=== PATIENT | female | born 1945 | race Two or more races ===

== ENCOUNTER 2025-02-01 21:31 | Emergency (ER) | payer MEDICARE, SELFPAY ==
[2025-02-01 21:59] VITALS: BP 152/86; PULSE 100; RESP 18; TEMP 37.3; O2SAT 98
--- NOTE | 2025-02-01 22:00 | EKG_ITS ---
[facility] Test Date: 2025-02-01 Pat Name: MATT MERRILL Department: Room: - Gender: Female [employer] Operator: : 1945 Requested By: Arturo Mccauley Order Number: [id number] Reading MD: Arturo Mccauley Measurements Intervals [place] Rate: 96 P: 45 DC: 145 QRS: -26 QRSD: 74 T: 16 QT: 330 QTc: 418 Interpretive Statements SINUS RHYTHM WITH OCCASIONAL SUPRAVENTRICULAR PREMATURE COMPLEXES LOW QRS VOLTAGE IN PRECORDIAL LEADS [QRS DEFLECTION < 1.0 mV IN CHEST LEADS] MINIMAL VOLTAGE CRITERIA FOR LVH, CONSIDER NORMAL VARIANT [MEETS CRITERIA IN ONE OF: R(aVL), S(V1), R(V5), R(V5/V6)+S(V1)] ANTERIOR MYOCARDIAL INFARCTION , PROBABLY OLD [40+ ms Q WAVE AND/OR ST/T ABNORMALITY IN V3/V4] INFERIOR MYOCARDIAL INFARCTION , PROBABLY OLD [40+ ms Q WAVE AND/OR ST/T ABNORMALITY IN II/aVF] No previous ECG available for comparison /store/S0/[id number].pdf
--- NOTE | 2025-02-01 22:01 | PD.EDRME ---
Rapid Medical Screening Exam RME Arrival date/time: 02/01/25 21:31 79 year old f present to ED for c/o elevated blood glucose I have greeted and performed a focused initial assessment of this patient. A comprehensive ED assessment and evaluation of the patient, analysis of all test results, and completion of the medical decision making process will be conducted by additional ED providers. Chief Complaint: Fever Time Seen by Provider: 02/01/25 21:40 Vital signs: Vital Signs Temperature 99.2 F 02/01/25 21:59 Pulse Rate 100 02/01/25 21:59 Respiratory Rate 18 02/01/25 21:59 Blood Pressure 152/86 H 02/01/25 21:59 Pulse Oximetry (%) 98 02/01/25 21:59 Oxygen Delivery Method Room Air 02/01/25 21:59
[2025-02-01 22:31] LABS: Lactate (Lactic Acid) 3.9 mMol/L (0.4-2.0)
[2025-02-01 22:36] LABS: Basophils % (Auto) 0 % (0-2.5); Eosinophils # (Auto) 0.4 Thou/mm3 (0.0-0.5); Eosinophils % (Auto) 5 % (0-10); Hematocrit 35.1 % (36.0-46.0); Hemoglobin 11.3 g/dL (12.0-16.0); Immature Granulocytes % (Auto) 0 % (0-0); Immature Granulocytes Auto 0.02 Thou/mm3 (0.00-0.00); Lymphocytes # (Auto) 1.5 Thou/mm3 (1.0-4.8); Lymphocytes % (Auto) 22 % (10-50); Mean Corpuscular HGB Conc 32.2 g/dl (31.0-37.0); Mean Corpuscular Volume 90 fL (80-100); Monocytes # (Auto) 0.4 Thou/mm3 (0.0-0.8); Monocytes % (Auto) 6 % (0-12); Neutrophils # (Auto) 4.6 Thou/mm3 (1.8-7.7); Neutrophils % (Auto) 66 % (37-80); Nucleated Red Blood Cell % 0 /100 WBC (0); Platelet Count 213 Thou/mm3 (140-440); RDW Standard Deviation 55.8 fL (36.4-46.3); White Blood Count 6.9 Thou/mm3 (3.6-11.0)
[2025-02-01 22:52] LABS: Glucose Estimated Average 263 mg/dL (80-131); Hemoglobin A1C 10.8 % Hgb (4.8-6.0)
[2025-02-01 23:02] LABS: Alanine Aminotransferase 19 U/L (10-49); Albumin, Serum 4.3 gm/dL (3.4-4.8); Albumin/Globulin Ratio 1.8 (1.2-2.2); Alkaline Phosphatase 93 U/L (46-116); Anion Gap 11 (7-16); Aspartate Amino Transferase 19 U/L (0-34); BUN/Creatinine Ratio 23 Ratio (12-20); Bilirubin,Total 0.3 mg/dL (0.3-1.2); Blood Urea Nitrogen 23 mg/dL (9-23); Calcium 9.3 mg/dL (8.3-10.6); Calcium (Corrected) 9.3 mg/dL (8.5-10.1); Carbon Dioxide 24.1 mMol/L (20.0-31.0); Chloride 102 mMol/L (98-107); Estimated Creatinine Clearance 39.8 mL/min (>60); Globulin 2.4 gm/dL (2.3-3.5); Magnesium 1.4 mg/dL (1.6-2.6); Osmolality,Calculated 295 (275-295); Potassium 4.6 mMol/L (3.4-5.1); Sodium 137 mMol/L (136-145); Total Protein 6.7 gm/dL (5.7-8.2); Troponin I < 0.002 ng/mL (0.0-0.045); eGFR 58 See Note
[2025-02-01 23:06] LABS: Glucose 416 mg/dL (74-106)
--- NOTE | 2025-02-01 23:12 | EDNOTE_ITS ---
ED Fever RME/HPI General Chief Complaint: Fever Stated Complaint: high blood glucose >500 Time Seen by Provider: 02/01/25 21:40 Source: patient and family Arrival date/time: 02/01/25 21:31 Mode of arrival: ambulatory Limitations: no limitations RME / HPI RME / HPI Narrative: 02/01/25 21:31 79 year old f present to ED for c/o elevated blood glucose I have greeted and performed a focused initial assessment of this patient. A comprehensive ED assessment and evaluation of the patient, analysis of all test results, and completion of the medical decision making process will be conducted by additional ED providers. Dr. Ramirez?s Main ED Evaluation: 79-year-old female presented to the Emergency Department with complaints of fever today. She reports a blood sugar reading greater than 500 mg/dL. Denies any pain at this time. Daughter reports that the patient was having some dysuria 1 week ago and was treated with Cipro. The patient still has some dysuria today. No fevers at home. No abdominal pain or back pain. No cough. Related Data Previous Rx's ?Medication ?Instructions ?Recorded meloxicam 7.5 mg tablet 7.5 mg PO QDAY #7 tabs 07/10 hydrocodone 5 mg-acetaminophen 325 1 tab PO Q6H PRN Co ugh #7 tabs 11/23/22 mg tablet Allergies Allergy/AdvReac Type Severity Reaction Status Date / Time No Known Allergies Allergy Verified 02/01/25 21:41 Review of Systems Review of Systems Systems Reviewed: All systems reviewed, normal except as documented Past Medical History Social History SMOKING STATUS: Never smoker Physical Exam General Limitations: no limitations General appearance: alert and in no apparent distress Head Head exam: atraumatic Eye Eye exam: Present normal appearance, PERRL and EOMI ENT ENT exam: Present normal exam, normal oropharynx and mucous membranes dry Neck Neck exam: Present normal inspection, full ROM and trachea midline Chest Chest inspection: Present normal inspection and symmetric chest wall rise Respiratory Respiratory exam: Present normal lung sounds bilaterally Cardiovascular Cardiovascular exam: Present regular rate, normal rhythm and normal heart sounds Abdominal Exam Abdominal exam: Present soft and normal bowel sounds Extremities Exam Extremities exam: Present normal inspection and full ROM Back Exam Back exam: Present normal inspection and full ROM Neurological Exam Neurological exam: Present alert, oriented X3 and CN II-XII intact Psychiatric Psychiatric exam: Present normal affect and normal mood Skin Skin exam: Present warm, dry, intact and normal color ED Exam General Limitations: Present no limitations General appearance: Present alert and in no apparent distress Head Head exam: Present atraumatic Eye Eye exam: Present normal appearance, PERRL and EOMI ENT ENT exam: Present normal exam, normal oropharynx and mucous membranes dry Neck Neck exam: Present normal inspection, full ROM and trachea midline Chest Chest inspection: Present normal inspection and symmetric chest wall rise Respiratory Respiratory exam: Present normal lung sounds bilaterally Cardiovascular Cardiovascular exam: Present regular rate, normal rhythm and normal heart sounds Abdominal Exam Abdominal exam: Present soft and normal bowel sounds Extremities Exam Extremities exam: Present normal inspection and full ROM Back Exam Back exam: Present normal inspection and full ROM Neurological Exam Neurological exam: Present alert, oriented X3 and CN II-XII intact Psychiatric Psychiatric exam: Present normal affect and normal mood Skin Skin exam: Present warm, dry, intact and normal color Course Quality Measures none Orders Category Date Time Status Bedside Influenza A&B Antigen Test NOW Care 02/01/25 22:01 Completed Blood glucose [Bedside Blood Glucose] NOW Care 02/01/25 22:00 Active EKG (ED ONLY) *Do not use* NOW Care 02/01/25 22:01 Completed IV [Insert IV] STAT Care 02/01/25 22:[address] abdomen pelvis wo con Stat Exams 02/02/25 03:41 Taken CXRP [XR chest 1V portable] Stat Exams 02/02/25 03:42 Taken EKG (ED Only) Stat Exams 02/01/25 22:00 Draft CBC Stat Lab 02/01/25 22:23 Completed CMP [Comprehensive Metabolic Panel] Stat Lab 02/01/25 22:23 Completed Hemoglobin A1C [Glycohemoglobin w (eAG)] Stat Lab 02/01/25 22:23 Completed Lactic Acid [Lactate (Lactic Acid)] Stat Lab 02/01/25 22:23 Completed Lactic Acid, 3 HR Stat Lab 02/02/25 01:40 Completed Mag [Magnesium] Stat Lab 02/01/25 22:23 Completed Procalcitonin Stat Lab 02/02/25 01:40 Completed Troponin I Stat Lab 02/01/25 22:23 Completed UA [Urinalysis] Stat Lab 02/01/25 23:07 Completed Magnesium Sulfate 2 GM Ivpb [Magnesium Sulfate Ivpb] Med 02/02/25 03:40 Active 2 gm in 50 ml IV X1 Sodium Chloride 0.9% 1000 ml [Ns] 1,000 ml Med 02/01/25 22:01 Discontinued IV 999 mls/hr Sodium Chloride 0.9% 1000 ml [Ns] 1,000 ml Med 02/02/25 03:40 Discontinued IV 999 mls/hr Vital Signs Vital signs: Vital Signs Temperature 99.2 F 02/01/25 21:59 Pulse Rate 100 02/01/25 21:59 Respiratory Rate 18 02/01/25 21:59 Blood Pressure 152/86 H 02/01/25 21:59 Pulse Oximetry (%) 98 02/01/25 21:59 Oxygen Delivery Method Room Air 02/01/25 21:59 Fever MDM Narrative MDM Narrative:: Differential diagnoses includes UTI, kidney stones, dehdyration, lactic acidosis secondary to metformin. 0600 Care signed out to [facility] provider. Past medical, surgical, social and family history reviewed. Vitals and home medications reviewed. Results and treatment plan discussed. They will assume the care of the patient at this time and will follow the patient, pending CT scan, repeat lactic acid and final disposition. EKG taken at 2202 shows normal sinus rhythm with a heart rate of 96 bpm, PVCs, low voltage, and a QTc of 364; no evidence of STEMI noted. Compared to the EKG from 2022, findings are similar per my interpretation. Scribe Attestation: I, Ysabel Cain, am scribing for and in the presence of Dr. Ramirez. Provider Notation: Although this document has been carefully reviewed, there may still be some phonetic and other typographical errors. These errors are purely grammatical due to imperfections in the software program and should not be construed in any way to compromise the substance of the patient's medical care during this visit. Patient data External records reviewed:: [facility] previous records Clinical information provided by:: patient and family Social determinants that could affect healthcare access:: none Patient has the following chronic illnesses:: see PMH How is presenting disease/condition affected by chronic disease/condition?: uneffected by Evaluation data The following diagnostics were reviewed and interpreted by me:: lab results and EKG tracing(s) Lab and/or radiology exams considered but not ordered:: n/a Interpretation Summary: Labs reviewed. WBC 6.9. Hgb 11.3/35. Sodium 137. Glucose 416. A1c 10.8. Lactic acid 3.9. Medications / Prescriptions Medications or Prescriptions considered but not ordered:: n/a Medication administrations:: Medication Administration History Magnesium Sulfate (Magnesium Sulfate Ivpb) 2 gm in 50 mls @ 25 mls/hr IV X1 ONE Stop: 02/02/25 05:39 Last Admin: 02/02/25 04:02 Dose: 25 mls/hr Documented By: EF Discontinued Medications Sodium Chloride (Ns) 1,000 mls @ 999 mls/hr IV .Q1H1M ONE Stop: 02/01/25 23:01 Last Infusion: 02/02/25 00:15 Dose: Infused Documented By: Admin: 02/01/25 23:14 Dose: 999 mls/hr Documented By: EF Sodium Chloride (Ns) 1,000 mls @ 999 mls/hr IV .Q1H1M ONE Stop: 02/02/25 04:40 Last Admin: 02/02/25 04:02 Dose: 999 mls/hr Documented By: EF as above Consultations Consultation(s) initiated? (list below): No Diagnosis Fever Differential Diagnosis: other (see MDM) Most likely diagnosis given after review of the tests above:: see clinical impression below Admission Indicated Admission indicated?: not indicated (sign out pending CT and final dispo) Admission Request Was there a request for admission?: No Disposition Plan Disposition Plan: other (specify) (sign out pending CT and final dispo) Discharge Plan Plan Patient condition on transfer: Stable Prescriptions/Referrals Prescriptions/Med Rec: No Action meloxicam 7.5 mg tablet 7.5 mg PO QDAY Qty: 7 0RF hydrocodone-acetaminophen 5-325 mg tablet 1 tab PO Q6H MDD 3 PRN (Reason: Cough) Qty: 7 0RF Referrals: Aime Wayne PA-C [Primary Care Provider] - In 1 week Problem List Clinical Impression: Elevated lactic acid level, Dysuria Patient/Caregiver Discharge Instructions Print Language: Tamazight
[2025-02-01] MEDS: SODIUM CHLORIDE 0.9% 1000 ML 1,000 ML 999 ML IV (23:14)
[2025-02-01 23:16] LABS: Collection Type, Urine Voided
[2025-02-01 23:20] LABS: Bilirubin,Urine Negative (Negative); Blood,Urine Negative (Negative); Clarity,Urine Clear (Clear/Hazy); Color,Urine Lt-Yellow (Lt Yel-Yel); Glucose, Urine 4+ (Negative); Ketones,Urine Negative (Negative); Leukocyte Esterase,Urine Positive (Negative); Nitrite,Urine Negative (Negative); Protein,Urine Negative (Neg - Trace); RBC,Urine 3 /hpf (0-3); Specific Gravity,Urine 1.029 (1.001-1.035); Squamous Epithelial Cell,Urine 1 /hpf (0-5); Urobilinogen,Urine Negative mg/dL (0.0-1.0); WBC,Urine 9 /hpf (0-5)
[2025-02-02 01:26] LABS: Reflex Lactate? Y
[2025-02-02 01:48] LABS: Lactic Acid, 3 HR 3.7 mMol/L (0.4-2.0)
[2025-02-02 03:36] VITALS: BP 136/78; PULSE 77; RESP 16; TEMP 36.6; O2SAT 96
--- NOTE | 2025-02-02 03:41 | XR_ITS ---
Examination: CT abdomen and pelvis without contrast. Coronal 3-D reconstructions. Sagittal 2-D reconstructions. Date and time of exam:February 02, 2025 at 0425 hours INDICATIONS: Dysuria flank pain today CTDI: vol (mGy): 7.23 DLP: (mGycm): 361 Technique: Axial images of the abdomen have been obtained, 3 mm slice thickness Intravenous contrast material has not been administered. Low dose protocols were performed. One or more of the following dose reduction techniques were used; automated exposure control, adjustment of the mA and/or KV according to patient size, use of iterative reconstruction technique. Findings: Small liver calcifications No gallstones No splenic or pancreatic mass Normal adrenal glands. 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
--- NOTE | 2025-02-02 03:42 | XR_ITS ---
Examination: AP chest single view TECHNIQUE: AP portable upright chest single view Exam date 9: February 02, 2025 at 0421 hours Comparison November 23, 2022 INDICATIONS: Fever today with high blood glucose FINDINGS: Mild prominence of ventricle No lobar pneumonia Prominent osteopenia IMPRESSION: No lobar pneumonia
[2025-02-02] MEDS: SODIUM CHLORIDE 0.9% 1000 ML 1,000 ML 999 ML IV (04:02)
[2025-02-02] MEDS: Magnesium Sulfate 2 GM Ivpb 2 GM/50 ML BAG IV (04:02)
[2025-02-02 04:14] LABS: Procalcitonin 0.09 ng/ml (0.0-0.49)
[2025-02-02 06:24] LABS: Lactate (Lactic Acid) 1.5 mMol/L (0.4-2.0)
--- NOTE | 2025-02-02 06:36 | PD.EDADDENDU ---
Emergency Room Addendum Addendum Narrative: 0600: Care assumed from Dr. Ramirez, the previous shift emergency physician. Past medical, surgical, social and family history reviewed. Vitals and home medications reviewed. I will assume the care of the patient at this time. Please refer to the emergency department record for history and examination from initial visit.? Physical exam by me shows patient under no acute distress at this time. 0840: Patient remains clinically stable throughout the emergency department visit. Re-assessment at the time of disposition demonstrates that the patient is in no acute distress. We reviewed all the results, analysis, and treatment plans. Patient is amenable to discharge. Strict return precautions were outlined. Patient was discharged in stable condition. Diagnosis: - Hyperglycemia
[2025-02-02 06:46] VITALS: BP 132/70; PULSE 74; RESP 18; TEMP 36.7; O2SAT 96
[2025-02-02 07:26] VITALS: BP 142/71; PULSE 72; RESP 18; TEMP 36.6; O2SAT 96
[2025-02-02 08:11] VITALS: BP 142/83; PULSE 69; RESP 17; TEMP 36.6; O2SAT 94
[2025-02-02 08:54] VITALS: BP 147/71; PULSE 74; RESP 17; TEMP 36.8; O2SAT 97
--- NOTE | 2025-02-02 11:27 | PRELIM_ITS ---
CT scan of the abdomen and pelvis without intravenous contrast (axial sections with sagittal and coronal reformats) February 02, 2025 0425 hours Clinical History: 79-year-old with dysuria Findings: Subsegmental atelectasis is noted at the lung bases. There are prominent bilateral extrarenal pelvis. No renal/ureteric calculus or ureteral obstruction. The pancreas is mildly atrophic. The liver, gallbladder, spleen and adrenals are unremarkable on this noncontrast study. No evidence of bowel obstruction. The appendix is within normal limits ( axial images [id number] ). A moderate amount of fecal material is present in the colon. There is no mesenteric or retroperitoneal adenopathy. The abdominal aorta and its branches demonstrate atheromatous calcification without evidence of aneurysm. The urinary bladder is unremarkable. There is a subcentimeter exophytic uterine calcification, of unclear clinical significance. No evidence of adnexal mass. There is no free fluid or free air. Degenerative changes are identified in the spine. There is grade I degenerative anterolisthesis of L4 over L5 and L5 on S1. There is levoscoliosis of the lumbar spine. Impression: No evidence of acute intra-abdominal or pelvic pathology on this noncontrast study. Other findings as described above. Report Electronically Signed By: John Calvo 02/02/2025 11:26:49 AM [EST]
== END 2025-02-02 09:05 | disposition home or self-care (01) ==
PROVIDERS: Internal Medicine; Physician Assistant; Emergency Provider Emergency Medicine; PCP Physician Assistant
DX: E87.20 Acidosis, unspecified (principal); R30.0 Dysuria; R73.9 Hyperglycemia, unspecified; I49.1 Atrial premature depolarization; R50.9 Fever, unspecified; R10.9 Unspecified abdominal pain
CPT/HCPCS: 36415; 71045; 74176; 80053; 81001; 83036; 83605; 83735; 84145; 84484; 85025; 87400; 93005; 96361; 96365; 96366; 99284; J3475; J7030

== ENCOUNTER 2025-02-15 11:50 | Emergency (ER) | payer OTHER, MEDICAID, SELFPAY ==
[2025-02-15 13:05] VITALS: BP 115/69; PULSE 114; RESP 18; TEMP 37.1; O2SAT 95; BMI 25.0
--- NOTE | 2025-02-15 13:14 | PD.EDRME ---
Rapid Medical Screening Exam RME Arrival date/time: 02/15/25 11:50 This is a 79-year-old female that is brought in by family members with complaints of fever, nausea, vomiting, body aches, cough and weakness that started last night. Patient has a history of diabetes. Per patient's daughter she has not been able to keep anything down today. Patient also complains of a headache today I have greeted and performed a focused initial assessment of this patient. Initial appropriate labs ordered at this time. A comprehensive ED assessment and evaluation of the patient and analysis of all test and completion of medical decision making process will be conducted by additional ED provider. Chief Complaint: Headache Time Seen by Provider: 02/15/25 13:03 Vital signs: Vital Signs Temperature 98.8 F 02/15/25 13:05 Pulse Rate 114 H 02/15/25 13:05 Respiratory Rate 18 02/15/25 13:05 Blood Pressure 115/69 02/15/25 13:05 Pulse Oximetry (%) 95 02/15/25 13:05 Oxygen Delivery Method Room Air 02/15/25 13:05
--- NOTE | 2025-02-15 13:16 | XR_ITS ---
Exam: Chest PA, lateral 2 views Technique: Chest upright PA lateral 2 views Date and time of exam: 11/17/2024, 1:46 PM Indication: Cough COMPARISON: 02/02/2025 Findings: Normal heart size. No mediastinal adenopathy. No acute fracture Mild peribronchial thickening. No focal mass or infiltrate. Impression: Peribronchial inflammation. No focal mass or infiltrate
[2025-02-15] MEDS: ONDANSETRON ODT 4 MG TABRAP PO (13:44)
[2025-02-15 13:45] LABS: Basophils % (Auto) 0 % (0-2.5); Eosinophils % (Auto) 0 % (0-10); Hematocrit 34.4 % (36.0-46.0); Hemoglobin 11.2 g/dL (12.0-16.0); Immature Granulocytes % (Auto) 1 % (0-0); Immature Granulocytes Auto 0.08 Thou/mm3 (0.00-0.00); Lymphocytes # (Auto) 0.6 Thou/mm3 (1.0-4.8); Lymphocytes % (Auto) 4 % (10-50); Mean Corpuscular HGB Conc 32.6 g/dl (31.0-37.0); Mean Corpuscular Hemoglobin 28.8 pg (25.0-35.0); Mean Corpuscular Volume 88 fL (80-100); Monocytes # (Auto) 1.3 Thou/mm3 (0.0-0.8); Monocytes % (Auto) 8 % (0-12); Neutrophils # (Auto) 14.3 Thou/mm3 (1.8-7.7); Neutrophils % (Auto) 87 % (37-80); Nucleated Red Blood Cell % 0 /100 WBC (0); Platelet Count 210 Thou/mm3 (140-440); RDW Standard Deviation 55.8 fL (36.4-46.3); Red Blood Count 3.89 Miln/mm3 (4.00-5.20); White Blood Count 16.4 Thou/mm3 (3.6-11.0)
[2025-02-15] MEDS: ACETAMINOPHEN 500 MG TABLET 1000 MG PO (13:45)
[2025-02-15 14:02] LABS: Alanine Aminotransferase 14 U/L (10-49); Albumin, Serum 4.5 gm/dL (3.4-4.8); Albumin/Globulin Ratio 1.7 (1.2-2.2); Alkaline Phosphatase 84 U/L (46-116); Anion Gap 17 (7-16); Aspartate Amino Transferase 18 U/L (0-34); BUN/Creatinine Ratio 13 Ratio (12-20); Bilirubin,Total 0.6 mg/dL (0.3-1.2); Blood Urea Nitrogen 12 mg/dL (9-23); Chloride 107 mMol/L (98-107); Creatinine (Component) 0.9 mg/dL (0.6-1.3); Estimated Creatinine Clearance 41.1 mL/min (>60); Globulin 2.6 gm/dL (2.3-3.5); Glucose 203 mg/dL (74-106); Lipase 22 U/L (12-53); Osmolality,Calculated 286 (275-295); Potassium 3.3 mMol/L (3.4-5.1); Sodium 141 mMol/L (136-145); Total Protein 7.1 gm/dL (5.7-8.2); eGFR > 60 See Note
[2025-02-15 14:05] LABS: Collection Type, Urine Voided
[2025-02-15 14:08] LABS: Bilirubin,Urine Negative (Negative); Blood,Urine Trace (Negative); Clarity,Urine Clear (Clear/Hazy); Color,Urine Lt-Yellow (Lt Yel-Yel); Culture Indicated,Urine Not Indicated; Glucose, Urine 4+ (Negative); Ketones,Urine 4+ (Negative); Leukocyte Esterase,Urine Negative (Negative); Nitrite,Urine Negative (Negative); PH,Urine 5.5 (5.0-7.0); Protein,Urine Trace (Neg - Trace); RBC,Urine 1 /hpf (0-3); Specific Gravity,Urine 1.031 (1.001-1.035); Squamous Epithelial Cell,Urine 1 /hpf (0-5); Urobilinogen,Urine Negative mg/dL (0.0-1.0); WBC,Urine 4 /hpf (0-5)
--- NOTE | 2025-02-15 14:27 | XR_ITS ---
Examination: CT brain head without contrast. 2-D sagittal coronal reconstructions Date and time of exam: February 17, 2025 1434 hrs. Indications: Generalized head pain today CTDI: vol (mGy):40.7 DLP: (mGycm):798 Technique: Multiple CT axial sections of the brain have been obtained, 5 mm slice thickness. Contrast has not been administered. 2-D sagittal, coronal reconstructions have been obtained Low dose protocols were performed. One or more of the following dose reduction techniques were used; automated exposure control, adjustment of the mA and/or KV according to patient size, use of iterative reconstruction technique. Findings: No significant ventricular enlargement. Intra-axial or extra-axial hemorrhage density is not seen. No mass effect or midline shift Basal cisterns are not remarkable. Fourth ventricle is midline. Cranial vault intact. Impression: Negative for acute hemorrhage, mass effect or midline shift
--- NOTE | 2025-02-15 15:19 | PRELIM_ITS ---
CT scan of the head without intravenous contrast (axial sections with sagittal and coronal reformats) February 15, 2025 1435 hours Clinical history: HEADACHE Comparison: No prior study is available for comparison. Findings: There is no evidence of intracranial hemorrhage, mass effect or midline shift. There are periventricular white matter hypodensities, compatible with chronic small vessel ischemia. There is mild volume loss. The calvarium is unremarkable. The mastoid air cells and the visualized paranasal sinuses are clear. Impression: No evidence of intracranial hemorrhage, mass effect or midline shift. Periventricular chronic small vessel ischemia and volume loss. Report Electronically Signed By: Jorge Aquino 02/15/2025 3:18:35 PM [EST]
[2025-02-15 15:27] VITALS: BP 138/81; PULSE 107; RESP 18; TEMP 37.6; O2SAT 96
--- NOTE | 2025-02-15 15:30 | PD.EDADULT ---
ED General RME/HPI General Chief complaint: Headache Stated complaint: HEADACHE, HUSSAIN ARM/FOOT PAIN, DRY MOUTH, FEVER Time Seen by Provider: 02/15/25 13:03 Arrival date/time: 02/15/25 11:50 RME / HPI RME / HPI narrative: 02/15/25 11:50 This is a 79-year-old female that is brought in by family members with complaints of fever, nausea, vomiting, body aches, cough and weakness that started last night. Patient has a history of diabetes. Per patient's daughter she has not been able to keep anything down today. Patient also complains of a headache today I have greeted and performed a focused initial assessment of this patient. Initial appropriate labs ordered at this time. A comprehensive ED assessment and evaluation of the patient and analysis of all test and completion of medical decision making process will be conducted by additional ED provider. DR. FERNANDEZ MAIN ED EVALUATION: 79 year old female presents to the Emergency Department with complaints of a headache, nausea, vomiting x4 episodes when coughing, and a productive cough. Onset of symptoms 1 day. Denies any chest pain. Denies any abdominal pain. She mentions that her headache is now better. She also mentions that she has no appetite for 1 day as well. PMHx: Hypertension, hypercholesterolemia, diabetes mellitus type 2, and GERD. Social Hx: No tobacco, alcohol, or substance use. Related Data Previous Rx's ?Medication ?Instructions ?Recorded meloxicam 7.5 mg tablet 7.5 mg PO QDAY #7 tabs 07/10/22 hydrocodone 5 mg-acetaminophen 325 1 tab PO Q6H PRN Cough #7 tabs 11/23/22 mg tablet ondansetron 4 mg disintegrating 4 mg PO Q8H PRN nausea and 02/15/25 tablet vomiting #14 tabs Allergies Allergy/AdvReac Type Severity Reaction Status Date / Time No Known Allergies Allergy Verified 02/15/25 11:55 Review of Systems Review of Systems Systems Reviewed: All systems reviewed, normal except as documented Past Medical History Past Medical History CARDIAC: Positive Hypercholesterolemia and Hypertension GASTROINTESTINAL: Positive Gastroesophageal Reflux Disease MUSCULOSKELETAL: Positive Arthritis ENDOCRINE: Positive Diabetes Mellitus Type 2 PSYCHO/SOCIAL: Positive Depression Surgical History SURGICAL: Positive Eye Surgery Social History SMOKING STATUS: Never smoker SUBSTANCE USE: does not use ALCOHOL: Never ED Exam Narrative Physical exam: GENERAL APPEARANCE: alert and oriented x 4, well-developed, well-nourished, no acute distress VITALS: All vitals were reviewed and the pulse ox is 96% on room air, which is normal according to my interpretation. HEENT: Normocephalic, atraumatic; pupils equal, round, reactive to light; EOMI; mucous membranes pink, dry; oropharynx clear NECK: Supple LUNGS: CTABL; no wheezes, no rales, no rhonchi HEART: Regular rate, regular rhythm; normal S1, S2; no murmurs ABDOMEN: moderately distended; normal BS; soft, no tenderness, no guarding, no rebound; no masses, no organomegaly, no hernia BACK: no CVA tenderness EXTREMITIES: atraumatic; no edema NEUROLOGIC: awake; alert and oriented x4; cranial nerves II-XII grossly intact; no focal sensory or motor deficits PSYCHIATRIC: appropriate mood and affect SKIN: warm, dry, normal color; no rashes Course Quality Measures none Orders Category Date Time Status Bedside COVID-19 Antigen Test NOW Care 02/15/25 13:16 Completed Bedside Influenza A&B Antigen Test NOW Care 02/15/25 13:[address] Screening NOW Care 02/15/25 16:[address] abdomen pelvis w con Stat Exams 02/15/25 16:[address] head/brain wo con Stat Exams 02/15/25 14:27 Completed XR chest 2V Stat Exams 02/15/25 13:16 Completed BNP [B-Type Natriuretic Peptide] Stat Lab 02/15/25 13:30 Completed CBC Stat Lab 02/15/25 13:30 Completed Comprehensive Metabolic Panel Stat Lab 02/15/25 13:30 Completed Lactate (Lactic Acid) Stat Lab 02/15/25 16:20 Completed Lipase Stat Lab 02/15/25 13:30 Completed Procalcitonin Stat Lab 02/15/25 13:30 Completed Troponin I Stat Lab 02/15/25 13:30 Completed Urinalysis, C/S if Indicated Stat Lab 02/15/25 12:30 Completed Acetaminophen Tab [Tylenol ES Tab] Med 02/15/25 13:17 Discontinued 1,000 mg PO X1 ONE Ondansetron Odt [Zofran Odt] Med 02/15/25 13:17 Discontinued 4 mg PO X1 ONE Piper/Tazo 3.375 gm Premix [Zosyn] Med 02/15/25 16:51 Discontinued 3.375 gm in 50 ml IV X1 Sodium Chloride 0.9% 1000 ml [Ns] 1,000 ml Med 02/15/25 15:32 Discontinued IV 999 mls/hr Sodium Chloride 0.9% 1000 ml [Ns] 1,000 ml Med 02/15/25 15:34 Discontinued IV 999 mls/hr Vital Signs Vital signs: Vital Signs Temperature 98.8 F 02/15/25 13:05 Pulse Rate 114 H 02/15/25 13:05 Respiratory Rate 18 02/15/25 13:05 Blood Pressure 115/69 02/15/25 13:05 Pulse Oximetry (%) 95 02/15/25 13:05 Oxygen Delivery Method Room Air 02/15/25 13:05 [facility] Patient data External records reviewed:: [facility] previous records (Reviewed last ED visit dated 02/02/25, discharged with the following: Dysuria) Clinical information provided by:: patient Social determinants that could affect healthcare access:: none Patient has the following chronic illnesses:: Hypertension, hypercholesterolemia, diabetes mellitus type 2, and GERD. How is presenting disease/condition affected by chronic disease/condition?: exacerbated by Evaluation data The following diagnostics were reviewed and interpreted by me:: lab results and radiology exam(s) Lab and/or radiology exams considered but not ordered:: none Interpretation Summary: Procedure(s): XR chest 2V Accession Number(s): [id number] cc: Quang Moreno MD; Aime Wayne PA-C; Nori Floyd NP~ Exam: Chest PA, lateral 2 views Technique: Chest upright PA lateral 2 views Date and time of exam: 11/17/2024, 1:46 PM Indication: Cough COMPARISON: 02/02/2025 Findings: Normal heart size. No mediastinal adenopathy. No acute fracture Mild peribronchial thickening. No focal mass or infiltrate. Impression: Peribronchial inflammation. No focal mass or infiltrate Dictated By: Quang Moreno MD [facility] [address] [place] [address] [employer] Preliminary Report Draft Patient: MATT MERRILL. Record#: [id number] Birthdate: 1945 Age/Sex: 79 / F Location: [facility] Attending Dr: Ordering Physician: Date of Service: Procedure(s): Accession Number(s): cc: ~ CT scan of the head without intravenous contrast (axial sections with sagittal and coronal reformats) February 15, 2025 1435 hours Clinical history: HEADACHE Comparison: No prior study is available for comparison. Findings: There is no evidence of intracranial hemorrhage, mass effect or midline shift. There are periventricular white matter hypodensities, compatible with chronic small vessel ischemia. There is mild volume loss. The calvarium is unremarkable. The mastoid air cells and the visualized paranasal sinuses are clear. Impression: No evidence of intracranial hemorrhage, mass effect or midline shift. Periventricular chronic small vessel ischemia and volume loss. Report Electronically Signed By: Jorge Aquino 02/15/2025 3:18:35 PM [EST] Dictated By: Signed By: DD/ 1441 TD/TT: 02/15/25 1518 Institutional Cook: Medications Medications considered but not ordered:: none Medication administrations:: Medication Administration History Discontinued Medications Acetaminophen (Acetaminophen 500 Mg Tablet) 1,000 mg PO X1 ONE Stop: 02/15/25 13:18 Last Admin: 02/15/25 13:45 Dose: 1,000 mg Documented By: SANDRA Sodium Chloride (Ns) 1,000 mls @ 999 mls/hr IV .Q1H1M ONE Stop: 02/15/25 16:32 Last Infusion: 02/15/25 18:40 Dose: Infused Documented By: Admin: 02/15/25 17:33 Dose: 999 mls/hr Documented By: TEVIN Sodium Chloride (Ns) 1,000 mls @ 999 mls/hr IV .Q1H1M ONE Stop: 02/15/25 16:34 Last Infusion: 02/15/25 18:40 Dose: Infused Documented By: Admin: 02/15/25 17:36 Dose: 999 mls/hr Documented By: TEVIN Piperacillin/Tazobactam/Dextrose (Zosyn) 3.375 gm in 50 mls @ 100 mls/hr IV X1 ONE Stop: 02/15/25 17:20 Last Infusion: 02/15/25 18:39 Dose: Infused Documented By: Admin: 02/15/25 17:42 Dose: 100 mls/hr Documented By: TEVIN Ondansetron HCl (Ondansetron Odt 4 Mg Tabrap) 4 mg PO X1 ONE; Protocol Stop: 02/15/25 13:18 Last Admin: 02/15/25 13:44 Dose: 4 mg Documented By: SANDRA see above Consultations Consultation(s) initiated? (list below): No Diagnosis Differential Diagnosis ED Complaint MDM: influenza, migraine, COVID Most likely diagnosis given after review of the tests above:: No official diagnoses at this time, still pending diagnostic tests. Patient signout to the die try out worker stamping provider. Admission Indicated Admission indicated?: not indicated Explain why admission is indicated or not indicated:: No final disposition plan at this time, still pending diagnostic tests. Patient signout to the die try out worker stamping provider. Admission Request Was there a request for admission?: No Disposition Plan Disposition Plan: other (specify) (Patient signout to the die try out worker stamping provider, pending abdomen/pelvis CT and final disposition.) Medical Decision Making MDM Narrative MDM Narrative: Ade Tobar, am scribing for and in the presence of Dr. Fernandez. Differential Diagnosis Differential Diagnosis: influenza, migraine, COVID Lab Data 02/15/25 13:30 02/15/25 13:30 Labs: Lab Results 02/15/25 02/15/25 02/15/25 Range/Units 12:30 13:30 16:20 WBC 16.4 H (3.6-11.0) Thou/mm3 RBC 3.89 L (4.00-5.20) Miln/mm3 Hgb 11.2 L (12.0-16.0) g/dL Hct 34.4 L (36.0-46.0) % MCV 88 (80-100) fL MCH 28.8 (25.0-35.0) pg MCHC 32.6 (31.0-37.0) g/dl RDW Std Deviation 55.8 H (36.4-46.3) fL Plt Count 210 (140-440) Thou/mm3 Neut % (Auto) 87 H (37-80) % Lymph % (Auto) 4 L (10-50) % [place] % (Auto) 8 (0-12) % Eos % (Auto) 0 (0-10) % Baso % (Auto) 0 (0-2.5) % Neut # (Auto) 14.3 H (1.8-7.7) Thou/mm3 Lymph # (Auto) 0.6 L (1.0-4.8) Thou/mm3 [place] # (Auto) 1.3 H (0.0-0.8) Thou/mm3 Eos # (Auto) 0.0 (0.0-0.5) Thou/mm3 Baso # (Auto) 0.0 (0.0-0.2) Thou/mm3 Immature Gran # (Auto) 0.08 H (0.00-0.00) Thou/mm3 Absolute Nucleated RBC 0.00 (0.00-0.00) Thou/mm3 Immature Gran % 1 H (0-0) % Nucleated RBC % 0 (0) /100 WBC Sodium 141 (136-145) mMol/L Potassium 3.3 L (3.4-5.1) mMol/L Chloride 107 (98-107) mMol/L Carbon Dioxide 17.0 L (20.0-31.0) mMol/L Anion Gap 17 H (7-16) BUN 12 (9-23) mg/dL Creatinine 0.9 (0.6-1.3) mg/dL Estim Creat Clear Calc 41.1 L (>60) mL/min eGFR > 60 (60 - ) See Note BUN/Creatinine Ratio 13 (12-20) Ratio Glucose 203 H (74-106) mg/dL Calculated Osmolality 286 (275-295) Lactic Acid 1.3 (0.4-2.0) mMol/L Calcium 9.0 (8.3-10.6) mg/dL Corrected Calcium 9.0 (8.5-10.1) mg/dL Total Bilirubin 0.6 (0.3-1.2) mg/dL AST 18 (0-34) U/L ALT 14 (10-49) U/L Alkaline Phosphatase 84 (46-116) U/L Troponin I < 0.020 (0.0-0.045) ng/mL B-Natriuretic Peptide 33 (0-100) pg/mL Total Protein 7.1 (5.7-8.2) gm/dL Albumin 4.5 (3.4-4.8) gm/dL Globulin 2.6 (2.3-3.5) gm/dL Albumin/Globulin Ratio 1.7 (1.2-2.2) Lipase 22 (12-53) U/L Procalcitonin 0.53 H (0.0-0.49) ng/ml Ur Collection Type Voided Urine Color Lt-Yellow (Lt Yel-Yel) Urine Clarity Clear (Clear/Hazy) Urine pH 5.5 (5.0-7.0) Ur Specific [place] 1.031 (1.001-1.035) Urine Protein Trace (Neg - Trace) Urine Glucose (UA) 4+ A (Negative) Urine Ketones 4+ A (Negative) Urine Blood Trace (Negative) Urine Nitrite Negative (Negative) Urine Bilirubin Negative (Negative) Urine Urobilinogen (Auto) Negative (0.0-1.0) mg/dL Ur Leukocyte Esterase Negative (Negative) Urine RBC 1 (0-3) /hpf Urine WBC 4 (0-5) /hpf Ur Squamous Epith Cells 1 (0-5) /hpf Urine Bacteria None (None) Ur Culture Indicated? Not Indicated Discharge Plan Plan Patient Disposition: HOME (Self Care) Disposition Comment: Stable for discharge home. Patient condition on transfer: Stable Prescriptions/Referrals Prescriptions/Med Rec: New ondansetron 4 mg tablet,disintegrating 4 mg PO Q8H PRN (Reason: nausea and vomiting) Qty: 14 0RF No Action meloxicam 7.5 mg tablet 7.5 mg PO QDAY Qty: 7 0RF hydrocodone-acetaminophen 5-325 mg tablet 1 tab PO Q6H MDD 3 PRN (Reason: Cough) Qty: 7 0RF Referrals: Aime Wayne PA-C [Primary Care Provider] - In 1 week Problem List Clinical Impression: Nausea & vomiting Patient/Caregiver Discharge Instructions Diet Instructions: Stay hydrated with with sugar-free liquids for the next 24 hours. Education Materials: ED Diet for Vomiting or ... Additional Instructions: Please follow-up with your primary care provider within the next 3-4 days. Return to the ER for any worsening symptoms, or if you start experiencing abdominal pain or fevers. Print Language: Turkmen Stand Alone Forms: [employer]olanda Award Info., Patient Portal Info Letter
--- NOTE | 2025-02-15 16:24 | XR_ITS ---
Examination: CT abdomen with intravenous contrast CT pelvis with intravenous contrast 2-D coronal reconstructions 2-D sagittal reconstructions Date and time of exam:February 15, 2025 1839 hours INDICATIONS: Generalized abdominal pain and vomiting today. CTDI: vol (mGy) 6.69 DLP: (mGycm) 292 Technique: Multiple axial sections of the abdomen and pelvis have been obtained. 64 slice high-resolution scanner used. 3 mm axial sections have been obtained, post intravenous injection 60 cc [id number] 2-D sagittal, coronal reconstructions obtained. Low dose protocols were performed. One or more of the following dose reduction techniques were used; automated exposure control, adjustment of the mA and/or KV according to patient size, use of iterative reconstruction technique. Findings: No focal liver or splenic lesions No gallstones No pancreatic mass No renal or ureteral calculi, no hydronephrosis No bowel obstruction Normal appendix Mild diffuse wall thickening involving the colon including rectum Urinary bladder intact IMPRESSION: Nonspecific colitis proctitis pattern
[2025-02-15 16:28] LABS: Procalcitonin 0.53 ng/ml (0.0-0.49); Troponin I < 0.020 ng/mL (0.0-0.045)
[2025-02-15 16:35] LABS: Lactate (Lactic Acid) 1.3 mMol/L (0.4-2.0)
[2025-02-15 16:52] LABS: B-Type Natriuretic Peptide 33 pg/mL (0-100)
[2025-02-15] MEDS: SODIUM CHLORIDE 0.9% 1000 ML 1,000 ML 999 ML IV ×2 (17:33→17:36)
[2025-02-15 17:36] VITALS: TEMP 36.7
[2025-02-15] MEDS: PIPER/TAZO 3.375 GM PREMIX 3.375 GM/50 ML BAG IV (17:42)
--- NOTE | 2025-02-15 18:11 | PD.EDADDENDU ---
Emergency Room Addendum Addendum Narrative: 1800: Care assumed from Dr. Fernandez the previous shift emergency physician. Past medical, surgical, social and family history reviewed. Vitals and home medications reviewed. Results and treatment plan discussed. I will assume the care of the patient at this time and will follow the patient, pending CT abdomen pelvis. Please refer to the emergency department record for history and examination from initial visit. 1810: I spoke with the patient at bedside. She states she feels significantly better compared to when she initially came in and does not want the CT abdomen pelvis. Patient states she was initially having N/V, but did not have any abdominal pain. On exam, her abdomen is soft, nontender, nondistended. Patient is stable to be discharged home.
[2025-02-15 18:27] VITALS: BP 121/61; PULSE 93; RESP 19; TEMP 37; O2SAT 95
--- NOTE | 2025-02-15 22:00 | PRELIM_ITS ---
CT scan of the abdomen and pelvis with intravenous contrast (axial sections with sagittal and coronal reformats) February 15, 2025 1839 hours Clinical History: Abdominal pain, vomiting. Findings: Bibasilar dependent atelectasis is present. The liver, gallbladder, pancreas, spleen, kidneys and adrenals are unremarkable. No evidence of bowel obstruction. There is mild thickening of the splenic flexure, descending colon, sigmoid colon and rectum with associated fat stranding and mucosal enhancement. The appendix is within normal limits (coronal images 61-76/135). There is no mesenteric or retroperitoneal adenopathy. The urinary bladder is unremarkable. There is no free fluid or free air. The bones are osteopenic. Mild degenerative changes are identified in the spine. There is anterolisthesis of L4 on L5 and L5 on S1. There is mild retrolisthesis of L2 on L3. There is mild scoliosis of the thoracolumbar spine, convexity towards the left. Impression: Findings suggestive of colitis as described. Other findings as described above. Report Electronically Signed By: Jorge Aquino 02/15/2025 9:59:42 PM [EST]
[2025-02-15 22:11] VITALS: BP 119/66; PULSE 88; RESP 16; TEMP 36.8; O2SAT 100
== END 2025-02-15 22:12 | disposition home or self-care (01) ==
PROVIDERS: Nurse Practitioner Family; Emergency Provider Emergency Medicine; PCP Physician Assistant
DX: R11.2 Nausea with vomiting, unspecified (principal); I10 Essential (primary) hypertension; E11.9 Type 2 diabetes mellitus without complications; E78.00 Pure hypercholesterolemia, unspecified; K21.9 Gastro-esophageal reflux disease without esophagitis
CPT/HCPCS: 36415; 70450; 71046; 74177; 80053; 81001; 83605; 83690; 83880; 84145; 84484; 85025; 87400; 87811; 96365; 99285; A4649; J2543; J7030; Q0162; Q9967; A9270

== ENCOUNTER 2025-03-13 21:58 | Observation (INO) | payer OTHER, MEDICAID, MEDICARE, SELFPAY ==
[2025-03-13 21:59] VITALS: BMI 25.4
[2025-03-13 22:23] VITALS: BP 131/73; PULSE 88; RESP 18; TEMP 37.2; O2SAT 96
--- NOTE | 2025-03-13 22:38 | PD.EDRME ---
Rapid Medical Screening Exam RME Arrival date/time: 03/13/25 21:58 Patient is a case of 79-year-old female who came into the emergency room due to abdominal pain and rectal pain secondary to hemorrhoids patient states that he had bloody stool today thus decided to shot consult here in the emergency room Chief Complaint: Urogenital-Female Time Seen by Provider: 03/13/25 22:37 Vital signs: Vital Signs Temperature 99 F 03/13/25 22:23 Pulse Rate 88 03/13/25 22:23 Respiratory Rate 18 03/13/25 22:23 Blood Pressure 131/73 H 03/13/25 22:23 Pulse Oximetry (%) 96 03/13/25 22:23 Oxygen Delivery Method Room Air 03/13/25 22:23
[2025-03-13 23:00] LABS: Basophils % (Auto) 0 % (0-2.5); Eosinophils # (Auto) 0.3 Thou/mm3 (0.0-0.5); Eosinophils % (Auto) 4 % (0-10); Hematocrit 32.6 % (36.0-46.0); Hemoglobin 10.5 g/dL (12.0-16.0); Immature Granulocytes % (Auto) 0 % (0-0); Immature Granulocytes Auto 0.02 Thou/mm3 (0.00-0.00); Lymphocytes # (Auto) 1.5 Thou/mm3 (1.0-4.8); Lymphocytes % (Auto) 18 % (10-50); Mean Corpuscular HGB Conc 32.2 g/dl (31.0-37.0); Mean Corpuscular Hemoglobin 28.8 pg (25.0-35.0); Mean Corpuscular Volume 90 fL (80-100); Monocytes # (Auto) 0.5 Thou/mm3 (0.0-0.8); Monocytes % (Auto) 6 % (0-12); Neutrophils # (Auto) 5.7 Thou/mm3 (1.8-7.7); Neutrophils % (Auto) 71 % (37-80); Nucleated Red Blood Cell % 0 /100 WBC (0); Platelet Count 283 Thou/mm3 (140-440); RDW Standard Deviation 56.5 fL (36.4-46.3); Red Blood Count 3.64 Miln/mm3 (4.00-5.20)
[2025-03-13 23:10] LABS: Collection Type, Urine Voided
[2025-03-13 23:23] LABS: Alanine Aminotransferase 11 U/L (10-49); Albumin, Serum 4.2 gm/dL (3.4-4.8); Albumin/Globulin Ratio 1.8 (1.2-2.2); Alkaline Phosphatase 72 U/L (46-116); Anion Gap 8 (7-16); Aspartate Amino Transferase 16 U/L (0-34); BUN/Creatinine Ratio 19 Ratio (12-20); Bilirubin,Total 0.4 mg/dL (0.3-1.2); Blood Urea Nitrogen 13 mg/dL (9-23); Chloride 104 mMol/L (98-107); Creatinine (Component) 0.7 mg/dL (0.6-1.3); Estimated Creatinine Clearance 53.2 mL/min (>60); Globulin 2.3 gm/dL (2.3-3.5); Glucose 231 mg/dL (74-106); Lipase 34 U/L (12-53); Osmolality,Calculated 284 (275-295); Potassium 4.2 mMol/L (3.4-5.1); Sodium 139 mMol/L (136-145); Total Protein 6.5 gm/dL (5.7-8.2); eGFR > 60 See Note
[2025-03-13 23:24] LABS: Bilirubin,Urine Negative (Negative); Blood,Urine Negative (Negative); Clarity,Urine Clear (Clear/Hazy); Color,Urine Yellow (Lt Yel-Yel); Glucose, Urine Trace (Negative); Ketones,Urine Negative (Negative); Leukocyte Esterase,Urine Positive (Negative); Nitrite,Urine Negative (Negative); PH,Urine 5.5 (5.0-7.0); Protein,Urine Trace (Neg - Trace); RBC,Urine 4 /hpf (0-3); Specific Gravity,Urine 1.029 (1.001-1.035); Squamous Epithelial Cell,Urine 2 /hpf (0-5); Urobilinogen,Urine Negative mg/dL (0.0-1.0); WBC,Urine 4 /hpf (0-5)
[2025-03-14 03:48] VITALS: BP 149/77; PULSE 73; RESP 18; TEMP 36.5; O2SAT 97
--- NOTE | 2025-03-14 04:07 | PD.EDADULT ---
ED General RME/HPI General Chief complaint: Urogenital-Female Stated complaint: HEMORRHOIDS Time Seen by Provider: 03/13/25 22:37 Arrival date/time: 03/13/25 21:58 RME / HPI RME / HPI narrative: 03/13/25 21:58 Patient is a case of 79-year-old female who came into the emergency room due to abdominal pain and rectal pain secondary to hemorrhoids patient states that he had bloody stool today thus decided to shot consult here in the emergency room -------- Dr. Mejía?s Main ED Evaluation: 79yo female with a history of hemorrhoids presents to the ED for chief complaint of rectal bleeding. Patient states she's had bright red rectal bleeding for the last 5 days. She endorses having pain when she has bowel movements. She states she did try to make an appointment with her PCP, but there weren't any available, so she came in for evaluation. Patient reports having generalized abdominal pain. Patient denies any fever, chills or any other associated symptoms. NKA. Related Data Previous Rx's ?Medication ?Instructions ?Recorded meloxicam 7.5 mg tablet 7.5 mg PO QDAY #7 tabs 07/10/22 hydrocodone 5 mg-acetaminophen 325 1 tab PO Q6H PRN Cough #7 tabs 11/23/22 mg tablet ondansetron 4 mg disintegrating 4 mg PO Q8H PRN nausea and 02/15/25 tablet vomiting #14 tabs Allergies Allergy/AdvReac Type Severity Reaction Status Date / Time No Known Allergies Allergy Verified 02/15/25 11:55 Review of Systems Review of Systems Systems Reviewed: All systems reviewed, normal except as documented Past Medical History Past Medical History CARDIAC: Positive Hypercholesterolemia and Hypertension; Negative Congestive Heart Failure RESPIRATORY: Negative Chronic Obstructive Pulmonary Disease (COPD) GASTROINTESTINAL: Positive Gastroesophageal Reflux Disease GENITOURINARY: Negative Renal Disease MUSCULOSKELETAL: Positive Arthritis ENDOCRINE: Positive Diabetes Mellitus Type 2; Negative Diabetes Mellitus Type 1 PSYCHO/SOCIAL: Positive Depression Surgical History SURGICAL: Positive Eye Surgery Social History SMOKING STATUS: Never smoker SUBSTANCE USE: does not use ED Exam Narrative Physical exam: GENERAL APPEARANCE: AxOx4, generally well-appearing, no acute distress. HEENT: NC, AT. MMM. EOMI, clear conjunctiva, oropharynx clear. NECK: Supple without lymphadenopathy. No stiffness or restricted ROM. HEART: Normal rate and regular rhythm, normal S1/S1, no m/r/g LUNGS: CTAB, moving air well. No crackles or wheezes are heard. ABDOMEN: Soft, nontender, nondistended with good bowel sounds heard. BACK: No midline C/T/L spine pain or deformity, No CVAT, no obvious deformity. EXTREMITIES: Without cyanosis, clubbing or edema. MUSCULOSKELETAL: FROM of all major joints, no chest tenderness RECTAL: Female licensed vocational nurse present. No external hemorrhoids. Mild rectal spasm. NEUROLOGICAL: Grossly nonfocal. Alert and oriented, moving all 4 extremities. CN not formally tested but appear grossly intact. Observed to ambulate with normal gait. Skin: Warm and dry without any rash. Course Course Course Narrative: Discussed case with Dr. Bhandari from GI regarding consultation. Discussed patients ED course, exam findings, labs, and radiology results. 0600: Care signed out to Dr. Veronica (emergency physician). Past medical, surgical, social and family history reviewed. Vitals and home medications reviewed. Results and treatment plan discussed. They will assume the care of the patient at this time and will follow the patient, pending CT abdomen pelvis. Quality Measures none Orders Category Date Time Status CT Screening NOW Care 03/14/25 05:25 Active IV [Insert IV] NOW Care 03/14/25 05:[address] abdomen pelvis w con Stat Exams 03/14/25 05:25 Ordered CBC Stat Lab 03/13/25 22:42 Completed CMP [Comprehensive Metabolic Panel] Stat Lab 03/13/25 22:42 Completed Lipase Stat Lab 03/13/25 22:42 Completed Urinalysis Stat Lab 03/13/25 22:50 Completed Vital Signs Vital signs: Vital Signs Temperature 99 F 03/13/25 22:23 Pulse Rate 88 03/13/25 22:23 Respiratory Rate 18 03/13/25 22:23 Blood Pressure 131/73 H 03/13/25 22:23 Pulse Oximetry (%) 96 03/13/25 22:23 Oxygen Delivery Method Room Air 03/13/25 22:23 Discharge Plan Prescriptions/Referrals Prescriptions/Med Rec: No Action meloxicam 7.5 mg tablet 7.5 mg PO QDAY Qty: 7 0RF hydrocodone-acetaminophen 5-325 mg tablet 1 tab PO Q6H MDD 3 PRN (Reason: Cough) Qty: 7 0RF ondansetron 4 mg tablet,disintegrating 4 mg PO Q8H PRN (Reason: nausea and vomiting) Qty: 14 0RF Referrals: Aime Wayne PA-C [Primary Care Provider] - In 1 week Problem List Clinical Impression: LGI bleed Patient/Caregiver Discharge Instructions Print Language: Citizen Of [place] MDM Narrative MDM hospital course (for use when minimal MDM required): Scribe Attestation: 03/14/25 - Roma Tobar am scribing for and in the presence of Dr. Mejía. Clinical Information Provided by: patient Medical Records reviewed [facility] (Per chart review, patient was seen here on 02/15/25 for N/V.) Meds/Rx considered, not ordered None Labs/Rad/Tests considered, not ordered None Chronic Illness/Social Conditions Explain: History of HTN, HLD, hemorrhoids Labs Labs: Interpreted by nc Lab(s) Interpretation(s): CBC is normal, CMP is normal, UA is unremarkable. Medication Administration(s) none Diagnosis Differential Diagnosis ED Complaint MDM: lower GI bleed, external hemorrhoids, anal fissure, perianal abscess
--- NOTE | 2025-03-14 05:25 | XR_ITS ---
Examination: CT abdomen with intravenous contrast CT pelvis with intravenous contrast 2-D coronal reconstructions 2-D sagittal reconstructions Date and time of exam:March 14, 2025 at 0631 hours INDICATIONS: Generalized abdominal pain today, clinical diagnosis colitis on February 15, 2025 exam. CTDI: vol (mGy) 6.08 DLP: (mGycm) 310 Technique: Multiple axial sections of the abdomen and pelvis have been obtained. 64 slice high-resolution scanner used. 3 mm axial sections have been obtained, post intravenous injection 60 cc Isovue-370 2-D sagittal, coronal reconstructions obtained. Low dose protocols were performed. One or more of the following dose reduction techniques were used; automated exposure control, adjustment of the mA and/or KV according to patient size, use of iterative reconstruction technique. Findings: No focal liver or splenic lesions Mucosa in the gastric antrum is thickened, axial image 70 No gallstones No pancreatic or adrenal mass No renal or ureteral calculi, no hydronephrosis Normal appendix No bowel obstruction Scattered colonic diverticulosis, no diverticulitis Retroverted atrophic uterus no adnexal mass Urinary bladder is intact Severe short angle lower lumbar dextroscoliosis Grade 1 anterolisthesis L4 on L5, L5 on S1 Diffuse lumbar disc narrowing, advanced L1-L2, L2-L3 IMPRESSION: No current colitis pattern. Suspicious for gastritis, consider elective upper GI series follow-up No renal or ureteral calculi Normal appendix No bowel obstruction Colonic diverticulosis, no diverticulitis
--- NOTE | 2025-03-14 06:10 | PC.NURSE ---
DR. MOON STATED TO START GOLYTELY AFTER PATIENT RETURNS FROM CT.
--- NOTE | 2025-03-14 06:29 | PD.EDADDENDU ---
Emergency Room Addendum Addendum Narrative: 0600: Care assumed from Dr. Mejía (emergency physician). Past medical, surgical, social and family history reviewed. Vitals and home medications reviewed. Results and treatment plan discussed. I will assume the care of the patient at this time and will follow the patient, pending CT of the abdomen. 0751: Admission Resident working with Dr. Dunn was made aware of the patient?s HPI, PMHx, lab and/or radiology results. Treatment plan was discussed. Will admit for further evaluation and management. Accepts patient for admission. DIAGNOSIS: Diverticulitis, Gastritis RADIOLOGY: Ordering Physician: Andrey Mejía MD Date of Service: 03/14/25 Procedure(s): CT abdomen pelvis w con Accession Number(s): [id number] cc: Andrey Mejía MD; Aime Wayne PA-C; Nazario Vang MD~ Examination: CT abdomen with intravenous contrast CT pelvis with intravenous contrast 2-D coronal reconstructions 2-D sagittal reconstructions Date and time of exam:March 14, 2025 at 0631 hours INDICATIONS: Generalized abdominal pain today, clinical diagnosis colitis on February 15, 2025 exam. CTDI: vol (mGy) 6.08 DLP: (mGycm) 310 Technique: Multiple axial sections of the abdomen and pelvis have been obtained. 64 slice high-resolution scanner used. 3 mm axial sections have been obtained, post intravenous injection 60 cc [id number] 2-D sagittal, coronal reconstructions obtained. Low dose protocols were performed. One or more of the following dose reduction techniques were used; automated exposure control, adjustment of the mA and/or KV according to patient size, use of iterative reconstruction technique. Findings: No focal liver or splenic lesions Mucosa in the gastric antrum is thickened, axial image 70 No gallstones No pancreatic or adrenal mass No renal or ureteral calculi, no hydronephrosis Normal appendix No bowel obstruction Scattered colonic diverticulosis, no diverticulitis Retroverted atrophic uterus no adnexal mass Urinary bladder is intact Severe short angle lower lumbar dextroscoliosis Grade 1 anterolisthesis L4 on L5, L5 on S1 Diffuse lumbar disc narrowing, advanced L1-L2, L2-L3 IMPRESSION: No current colitis pattern. Suspicious for gastritis, consider elective upper GI series follow-up No renal or ureteral calculi Normal appendix No bowel obstruction Colonic diverticulosis, no diverticulitis Dictated By: Nazario Vang MD Signed By: <Electronically signed by Nazario Vang MD in OV> 03/14/25 0728
--- NOTE | 2025-03-14 08:37 | PD.RESHP ---
Documentation for date of: 03/14/25 HPI History of Present Illness Chief complaint: Abdominal pain and NM bleed History of present illness: HPI: Patient is Ivorian-speaking and history facilitated by registered healthcare foreign language interpreter. Patient is poor historian Patient is a 79-year-old female with past medical history significant for kfq-cdxjrnx-bvbjywmuj diabetes mellitus type 2 presented with a chief complaint of abdominal pain and NM bleed for the past 3 days. With regards to her abdominal pain it was described as lower, cramping, no radiation and no aggravating or relieving factors. It was also associated with bright red NM bleed in his stool for the past 3 days. Denies any vomiting, melena, coffee ground emesis, fever, chest pain/pressure and palpitations. Of note patient says she has sick contacts as her family members at home are sick with a cough. Denies any recent travel. Incidentally patient stated that 15 years ago she had a similar presentation of NM bleed and underwent a colonoscopy. She cannot remember the results. ED course: BP 149/77, pulse 73, RR 18, temp 97.7 F, SpO2 97% on room air. Labs significant for Hb 10.5, HCT 32.6, BUN 13, CR 0.7. CT abdomen showed thickening of mucosa in gastric antrum. Colonic diverticulosis, negative for diverticulitis. Lumbar dextroscoliosis. In the ED patient received pantoprazole 40 Mg IV x 1 and a GoLytely bowel prep. Patient will be admitted for workup and management of NM bleed. Gastroenterology, Dr. Bhandari closely following the case. Appreciate recommendations Review of Systems Review of Systems Narrative Review of Systems: GENERAL: Denies fever/chills or diaphoresis. HEENT: Denies headaches or visual changes. Denies discharge. Neuro: Denies unusual weakness or difficulty speaking. CARDIO: Denies chest pain or palpitations. PULM: Denies SOB, coughing or wheezing. GI: As above URO: Denies burning/itching/pain/urinary changes. MSK/EXT/SKIN: Denies joint/skeletal/muscle pain, issues/changes in upper or lower extremities, itchiness, or superficial pain. PSYCH: Cooperative, pleasant mood & affect. The rest of the review of systems is otherwise negative. 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 Education Level: Attended school up to the third grade Marital Status: . Had 5 kids, currently 3 are alive Tobacco use: Denies ETHO use: Denies Illicit drug use: Denies Social History Note: lives with children Family History: Father?DM Daughter?cancer [unsure of type] Exam Vital Signs Temp Pulse Resp BP Pulse Ox O2 Del Method 97.7 F 73 18 149/77 H 97 Room Air 03/14/25 03:48 03/14/25 03:48 03/14/25 03:48 03/14/25 03:48 03/14/25 03:48 03/14/25 03:48 Narrative Exam Constitutional Alert, oriented x 3 and comfortable HEENT Vision grossly intact. Patent nares. Trachea midline Respiratory Chest normal on inspection and clear auscultation bilaterally Cardiovascular S1 and S2 audible, RRR. No murmurs carotid bruit. No gross JVD. Abdominal Soft and tender to palpation in left lower quadrant with guarding, no rebound tenderness. BS + Genitourinary No bladder tenderness, no flank pain. Normal to palpation Musculoskeletal Extremities tone within normal limits. No LE edema. Neurological CN II - XII grossly intact. Extremity motor and sensation grossly intact. Skin Warm, dry and intact. No apparent lesions. Psychiatric Patient has good affect, is cooperative Results: Labs 03/15/25 04:13 03/15/25 04:13 Labs: Short CBC 03/13/25 Range/Units 22:42 WBC 8.0 (3.6-11.0) Thou/mm3 Hgb 10.5 L (12.0-16.0) g/dL Hct 32.6 L (36.0-46.0) % Plt Count 283 D (140-440) Thou/mm3 BMP 03/13/25 22:42 Sodium 139 Potassium 4.2 Chloride 104 Carbon Dioxide 27.0 BUN 13 Creatinine 0.7 Glucose 231 H Calcium 9.0 Liver Function 03/13/25 Range/Units 22:42 Total Bilirubin 0.4 (0.3-1.2) mg/dL AST 16 (0-34) U/L ALT 11 (10-49) U/L Alkaline Phosphatase 72 (46-116) U/L Albumin 4.2 (3.4-4.8) gm/dL Urine 03/13/25 Range/Units 22:50 Urine Color Yellow (Lt Yel-Yel) Urine Clarity Clear (Clear/Hazy) Urine pH 5.5 (5.0-7.0) Ur Specific [place] 1.029 (1.001-1.035) Urine Protein Trace (Neg - Trace) Urine Glucose (UA) Trace (Negative) Quality Measures Quality Measures none Advance care planning discussed with:: patient Medications Home Medications and Allergies Home Medications ?Medication ?Instructions ?Recorded ?Confirmed ?Type cetirizine 10 mg tablet (Aller-Aydee) 10 mg PO QDAY 03/14/25 03/14/25 History gabapentin 300 mg capsule 300 mg PO Q12H 03/14/25 03/14/25 History omeprazole 20 mg capsule,delayed 20 mg PO QDAY 03/14/25 03/14/25 History release paroxetine HCl 10 mg tablet 10 mg PO QDAY 03/14/25 03/14/25 History sitagliptin phosphate 50 1 tab PO BID 03/14/25 03/14/25 History mg-metformin 1,000 mg tablet (Janumet) Allergies Allergy/AdvReac Type Severity Reaction Status Date / Time No Known Allergies Allergy Verified 02/15/25 11:55 Visit Medications Discontinued Medications Pantoprazole Sodium (Pantoprazole Inj 40 Mg Vial) 40 mg IV X1 ONE Stop: 03/14/25 07:55 Polyethylene Glycol/Electrolytes (Na Fu/Nahco3/Jaron/Peg (Golytely) 4,000 Ml Btl) 4,000 ml PO X1 ONE Stop: 03/14/25 06:01 Assessment & Plan Plan Patient is a 79-year-old female with past medical history significant for zwe-sbiugsf-woqqkmkpk diabetes mellitus type 2 presented with a chief complaint of abdominal pain and NM bleed for the past 3 days. Patient will be admitted for workup and management of NM bleed. NM bleed Abdominal pain Patient presents with 3-day history of bright red NM bleed and lower abdominal pain. On exam has left lower quadrant pain to palpation without rebound tenderness. DDx: Diverticular bleed, internal hemorrhoids, infectious colitis, IBD Plan: ? Clear liquid diet ? Stool studies ordered including ANCA screen, calprotectin, Giardia, H. pylori, norovirus, stool culture and stool for WBCs. ? Repeat H&H ordered for 6 PM ? GoLytely bowel prep. For colonoscopy once clear. ? Gastroenterology, Dr. Bhandari consulted and closely following the case. Appreciate recommendations Ezh-umwxjho-cghxoypgn diabetes mellitus type 2 Last A1c on file 10.8 Plan: ? Insulin glargine 5 units SC at bedtime ? Insulin sliding scale Health maintenance: Disposition: Stool studies. For colonoscopy once cleared Diet: Clear liquid diet Lines: pIVs GI Prophylaxis: Pantoprazole Thrombo Prophylaxis: SCDs Code status: FULL CODE Plan of care discussed with Attending Dr. Shaun Perez MD PGY 1 Disclaimer: This note was dictated by speech recognition. Minor errors in drafter electromechanical may be present due to voice recognition software. Attending Provider Attestation/Addendum I attest that I was physically present for the evaluation, physical examination, lab and imaging review of the patient with the residents. I discussed the case with the residents and agree with the findings and plans of care as documented above. Negar Dunn MD
[2025-03-14 09:51] VITALS: BP 149/75; PULSE 63; RESP 18; TEMP 36.8; O2SAT 94
[2025-03-14] MEDS: INSULIN GLARGINE (Lantus) 5 UNIT/0.05 ML (PER 5 UNITS) SC (09:54)
[2025-03-14] MEDS: PANTOPRAZOLE INJ 40 MG VIAL IV (09:55)
[2025-03-14] MEDS: NA SU/NAHCO3/KC/PEG (Golytely) 4,000 ML BTL 4000 ML PO (12:08)
[2025-03-14] MEDS: INSULIN LISPRO (AdmeLOG) 1 UNIT/0.01 ML UNIT SC (12:25)
[2025-03-14 14:23] VITALS: BP 133/85; PULSE 67; RESP 18; TEMP 36.4; O2SAT 93
--- NOTE | 2025-03-14 14:36 | PC.NURSE ---
report given to Noah on med/tele floor. pt to go to room 365
[2025-03-14 15:43] VITALS: BMI 22.9
[2025-03-14 16:00] VITALS: BP 126/76; PULSE 73; RESP 16; TEMP 37; O2SAT 93
--- NOTE | 2025-03-14 16:05 | PD.IMCONS ---
HPI Data of Consult Requesting Physician: Negar Dunn MD Primary Care Provider: Aime Wayne PA-C Consult Narrative Reason for consult: Rectal bleeding History of present illness: 79 years old female comes into the emergency room with 5 days of rectal bleeding Initial presenting hemoglobin hematocrit 10.5 and 32.6 with a platelet count at 1 83,000 and pro time INR normal BUN/creatinine 39.7 CT scan of the abdomen pelvis showed gastritis diverticulosis but no diverticulitis Patient does take meloxicam cc:: cc: Negar Dunn MD Past Medical History Surgical History OTHER SURGICAL HX: Essential hypertension Meds Home Medications and Allergies Home Medications ?Medication ?Instructions ?Recorded ?Confirmed ?Type cetirizine 10 mg tablet (Aller-Aydee) 10 mg PO QDAY 03/14/25 03/14/25 History gabapentin 300 mg capsule 300 mg PO Q12H 03/14/25 03/14/25 History omeprazole 20 mg capsule,delayed 20 mg PO QDAY 03/14/25 03/14/25 History release paroxetine HCl 10 mg tablet 10 mg PO QDAY 03/14/25 03/14/25 History sitagliptin phosphate 50 1 tab PO BID 03/14/25 03/14/25 History mg-metformin 1,000 mg tablet (Janumet) Allergies Allergy/AdvReac Type Severity Reaction Status Date / Time No Known Allergies Allergy Verified 02/15/25 11:55 Exam Vital Signs Temp Pulse Resp BP Pulse Ox O2 Del Method 97.6 F 67 18 133/85 H 93 L Room Air 03/14/25 14:23 03/14/25 14:23 03/14/25 14:23 03/14/25 14:23 03/14/25 14:23 03/14/25 14:23 Constitutional Comments: Alert oriented Routine Respiratory Exam Comments: Normal to auscultation Routine Abdominal Exam Comments: Soft nontender Results Labs 03/13/25 22:42 03/13/25 22:42 Labs: Short CBC 03/13/25 Range/Units 22:42 WBC 8.0 (3.6-11.0) Thou/mm3 Hgb 10.5 L (12.0-16.0) g/dL Hct 32.6 L (36.0-46.0) % Plt Count 283 D (140-440) Thou/mm3 BMP 03/13/25 22:42 Sodium 139 Potassium 4.2 Chloride 104 Carbon Dioxide 27.0 BUN 13 Creatinine 0.7 Glucose 231 H Calcium 9.0 Liver Function 03/13/25 Range/Units 22:42 Total Bilirubin 0.4 (0.3-1.2) mg/dL AST 16 (0-34) U/L ALT 11 (10-49) U/L Alkaline Phosphatase 72 (46-116) U/L Albumin 4.2 (3.4-4.8) gm/dL Urine 03/13/25 Range/Units 22:50 Urine Color Yellow (Lt Yel-Yel) Urine Clarity Clear (Clear/Hazy) Urine pH 5.5 (5.0-7.0) Ur Specific [place] 1.029 (1.001-1.035) Urine Protein Trace (Neg - Trace) Urine Glucose (UA) Trace (Negative) Assessment and Plan Additional Assessment & Plan Additional Plan: Hematochezia etiology uncertain Plan Clear liquid diet GoLytely prep Consent obtained for fiberoptic colonoscopy as well as fiberoptic upper endoscopy because of the CT scan abnormality scheduled for tomorrow or once the patient is clear Other medical problems include Essential hypertension
[2025-03-14 19:13] LABS: Hematocrit 35.4 % (36.0-46.0); Hemoglobin 11.5 g/dL (12.0-16.0)
[2025-03-14 20:00] VITALS: BP 145/69; PULSE 67; PULSE 70; RESP 16; TEMP 36.3; O2SAT 97
[2025-03-15] VITALS (30 sets, daily range): BP systolic 90–175; BP diastolic 60–99; PULSE 58–93; RESP 10–24; TEMP 36.1–36.7; O2SAT 94–99
[2025-03-15 06:09] LABS: Basophils % (Auto) 1 % (0-2.5); Eosinophils # (Auto) 0.3 Thou/mm3 (0.0-0.5); Eosinophils % (Auto) 4 % (0-10); Hematocrit 31.6 % (36.0-46.0); Hemoglobin 10.7 g/dL (12.0-16.0); Immature Granulocytes % (Auto) 0 % (0-0); Immature Granulocytes Auto 0.02 Thou/mm3 (0.00-0.00); Lymphocytes # (Auto) 1.2 Thou/mm3 (1.0-4.8); Lymphocytes % (Auto) 19 % (10-50); Mean Corpuscular HGB Conc 33.9 g/dl (31.0-37.0); Mean Corpuscular Volume 86 fL (80-100); Monocytes # (Auto) 0.5 Thou/mm3 (0.0-0.8); Monocytes % (Auto) 8 % (0-12); Neutrophils # (Auto) 4.4 Thou/mm3 (1.8-7.7); Neutrophils % (Auto) 68 % (37-80); Nucleated Red Blood Cell % 0 /100 WBC (0); Platelet Count 271 Thou/mm3 (140-440); RDW Standard Deviation 55.3 fL (36.4-46.3); Red Blood Count 3.69 Miln/mm3 (4.00-5.20); White Blood Count 6.4 Thou/mm3 (3.6-11.0)
[2025-03-15 06:24] LABS: Partial Thromboplastin Time 25.1 Seconds (22.0-36.0); Prothrombin Time 11.4 Seconds (9.0-12.2)
[2025-03-15 06:39] LABS: Alanine Aminotransferase 11 U/L (10-49); Albumin, Serum 3.9 gm/dL (3.4-4.8); Albumin/Globulin Ratio 1.8 (1.2-2.2); Alkaline Phosphatase 75 U/L (46-116); Anion Gap 10 (7-16); Aspartate Amino Transferase 18 U/L (0-34); BUN/Creatinine Ratio 13 Ratio (12-20); Bilirubin,Total 0.5 mg/dL (0.3-1.2); Blood Urea Nitrogen 8 mg/dL (9-23); Calcium 8.8 mg/dL (8.3-10.6); Calcium (Corrected) 8.9 mg/dL (8.5-10.1); Carbon Dioxide 27.4 mMol/L (20.0-31.0); Cardiac Risk Estimate 3.2 RATIO (3.7-5.6); Chloride 104 mMol/L (98-107); Cholesterol 120 mg/dL (132-200); Creatinine (Component) 0.6 mg/dL (0.6-1.3); Estimated Creatinine Clearance 57.5 mL/min (>60); Globulin 2.2 gm/dL (2.3-3.5); Glucose 149 mg/dL (74-106); HDL Cholesterol 38 mg/dL (40-60); LDL Cholesterol,Calculated 61 mg/dL (0-130); Magnesium 1.4 mg/dL (1.6-2.6); Osmolality,Calculated 282 (275-295); Phosphorous 3.7 mg/dL (2.4-5.1); Potassium 3.8 mMol/L (3.4-5.1); Sodium 141 mMol/L (136-145); Thyroid Stimulating Hormone 0.98 uIU/mL (0.55-4.78); Total Protein 6.1 gm/dL (5.7-8.2); Triglycerides 106 mg/dL (30-150); eGFR > 60 See Note
[2025-03-15] MEDS: Magnesium Sulfate 2 GM Ivpb 2 GM/50 ML BAG IV (09:01)
[2025-03-15] MEDS: PANTOPRAZOLE INJ 40 MG VIAL IVP (09:01)
--- NOTE | 2025-03-15 13:20 | SUR.PHASEI ---
1320 Patient arrived to recovery, awake and alert, breathing unlabored, on oxygen 5L via nasal cannula, sleeping comfortably-able to arouse with verbal prompting then drift back to sleep, vital signs stable, denies pain and nausea
--- NOTE | 2025-03-15 13:57 | SUR.PHASEI ---
1353 Report given to Noah TESFAYE, patient meets discharge criteria from recovery, awake and talking with staff, on oxygen 4L via nasal cannula, breathing unlabored, vital signs stable, denies pain, patient drinking water- tolerating well 1357 Patient transported via rney to room 365 without incident, Noah TESFAYE promptly in patients room, patient able to transfer herself from [place] to bed, patient sitting up in bed with call light in reach and family at bedside when this chart writer left patients room
--- NOTE | 2025-03-15 16:18 | ESPR_ITS ---
Documentation for date of: 03/15/25 Subjective Subjective Interval history: Today patient vitally stable, hemoglobin stable at 10.7, CMP with no significant changes. Magnesium was 1.4 was repleted with 2 g of magnesium. Patient is scheduled today for colonoscopy by Dr. Bhandari. Patient is on GoLytely at this time. Exam Vital Signs Temp Pulse Resp BP Pulse Ox O2 Del Method O2 Flow Rate 97.8 F 89 14 122/81 96 Room Air 4 03/15/25 13:50 03/15/25 13:50 03/15/25 13:50 03/15/25 13:50 03/15/25 13:50 03/15/25 08:00 03/15/25 13:50 Narrative Exam GEN: AOx3, able to speak full sentences HEENT: NC/AC, oral mucosa moist, neck supple CVS: RRR, S1-S2 present, no murmurs appreciated RESP: CTAB GI: soft,non distended, non tender, NBS MSK: able to move all 4 limbs, no lower extremity edema SKIN: warm and dry FARMWORKERS: CN II-XII and Sensation grossly intact. Objective Labs 03/16/25 04:52 03/16/25 04:52 Labs: Laboratory Results - last 24 hr 03/14/25 03/15/25 18:22 04:13 WBC 6.4 RBC 3.69 L Hgb 11.5 L 10.7 L Hct 35.4 L 31.6 L MCV 86 MCH 29.0 MCHC 33.9 RDW Std Deviation 55.3 H Plt Count 271 Neut % (Auto) 68 Lymph % (Auto) 19 [place] % (Auto) 8 Eos % (Auto) 4 Baso % (Auto) 1 Neut # (Auto) 4.4 Lymph # (Auto) 1.2 [place] # (Auto) 0.5 Eos # (Auto) 0.3 Baso # (Auto) 0.0 Immature Gran # (Auto) 0.02 H Absolute Nucleated RBC 0.00 Immature Gran % 0 Nucleated RBC % 0 PT 11.4 INR 1.0 APTT 25.1 Sodium 141 Potassium 3.8 Chloride 104 Carbon Dioxide 27.4 Anion Gap 10 BUN 8 L Creatinine 0.6 Estim Creat Clear Calc 57.5 L eGFR > 60 BUN/Creatinine Ratio 13 Glucose 149 H D Calculated Osmolality 282 Calcium 8.8 Corrected Calcium 8.9 Phosphorus 3.7 Magnesium 1.4 L Total Bilirubin 0.5 AST 18 ALT 11 Alkaline Phosphatase 75 Total Protein 6.1 Albumin 3.9 Globulin 2.2 L Albumin/Globulin Ratio 1.8 Triglycerides 106 Cholesterol 120 L LDL Cholesterol, Calc 61 HDL Cholesterol 38 L Cholesterol/HDL Ratio 3.2 L TSH 0.98 Quality Measures Quality Measures none Advance care planning discussed with:: patient Assessment & Plan Assessment Current Active Medications: Generic Name Dose Route Start Last Admin Trade Name Freq PRN Reason Stop Dose Admin Acetaminophen 650 mg 03/14/25 08:37 Acetaminophen 325 Mg Tablet PO 04/13/25 08:36 Q6H PRN Fever >100.3 or pain (1-6 Hydrocodone Bitart/Acetaminophen 1 tab 03/14/25 08:37 Hydrocodone/Apap 10/325 Tab PO 03/19/25 08:36 Q4HR PRN PAIN SCALE 7-10 (Severe Albuterol/Ipratropium 3 ml 03/14/25 08:37 Albuterol/Ipratropium (Duoneb) Rt Nai 3 Ml Nebu INH 04/13/25 08:36 Q4HR PRN SHORTNESS OF BREATH OR WHEEZE Dextrose 50 ml 03/14/25 08:43 Dextrose 50%-Water Inj 50 Ml Syringe IV 04/13/25 08:42 Q15MIN PRN BG <50 OR BG <70 & pt unresponsive Glucagon 1 mg 03/14/25 08:43 Glucagon Inj 1 Mg Vial IM Q15MIN PRN BG <70, and no IV access Insulin Glargine 5 unit 03/15/25 21:00 Insulin Glargine (Lantus) 5 Unit/0.05 Ml (Per 5 Units) SC 04/14/25 20:59 [facility] Insulin Human Lispro 0 unit 03/14/25 11:30 03/15/25 12:26 Insulin Lispro (Admelog) 1 Unit/0.01 Ml Unit SC 04/13/25 11:29 Not Given AC [facility] Protocol Morphine Sulfate 2 mg 03/14/25 08:37 Morphine Sulf Inj 10 Mg/Ml Vial IVP 03/19/25 08:36 Q4H PRN BREAKTHROUGH PAIN Ondansetron HCl 4 mg 03/14/25 08:37 Ondansetron Inj 2 Mg/Ml Inj 2 Ml IV 04/13/25 08:36 Q6H PRN NAUSEA OR VOMITING Protocol Pantoprazole Sodium 40 mg 05/11/25 09:00 03/15/25 09:01 Pantoprazole Inj 40 Mg Vial IVP 04/14/25 08:59 40 mg QDAY STONE Administration Plan Summary:a 79-year-old female with past medical history significant for drj-xcvkxcn-vaienwrhy diabetes mellitus type 2 presented with a chief complaint of abdominal pain and ND bleed for the past 3 days. Patient will be admitted for workup and management of ND bleed. Lower GI bleed Abdominal pain Patient presents with 3-day history of bright red ND bleed and lower abdominal pain. On exam has left lower quadrant pain to palpation without rebound tenderness. DDx: Diverticular bleed, internal hemorrhoids, infectious colitis, IBD Plan: ? Clear liquid diet ? Stool studies ordered including ANCA screen, calprotectin, Giardia, H. pylori, norovirus, stool culture and stool for WBCs. ? GoLytely bowel prep. For colonoscopy once clear. ? Gastroenterology, Dr. Bhandari consulted and closely following the case. Appreciate recommendations Doe-uhuydax-faruudnpt diabetes mellitus type 2 Last A1c on file 10.8 Plan: ? Insulin glargine 5 units SC at bedtime ? Insulin sliding scale Health maintenance: Disposition: Stool studies. For colonoscopy once cleared Diet: Clear liquid diet Lines: pIVs GI Prophylaxis: Pantoprazole Thrombo Prophylaxis: SCDs Code status: FULL CODE Attending Provider Attestation/Addendum I attest that I was physically present for the evaluation, physical examination, lab and imaging review of the patient with the residents. I discussed the case with the residents and agree with the findings and plans of care as documented above. Patient undergoing colonoscopy and EGD with gastroenterology today. Hemoglobin remained stable. Continues to be on insulin regimen for diabetes. Negar Dunn MD
[2025-03-15] MEDS: INSULIN GLARGINE (Lantus) 5 UNIT/0.05 ML (PER 5 UNITS) SC (20:37)
[2025-03-15] MEDS: ACETAMINOPHEN 325 MG TABLET 650 MG PO (21:30)
[2025-03-16] VITALS: BP 110/67; PULSE 68; PULSE 72; RESP 16; TEMP 36.1; O2SAT 96
[2025-03-16 04:00] VITALS: BP 129/72; PULSE 63; PULSE 76; RESP 16; TEMP 36.2; O2SAT 98
[2025-03-16 06:45] LABS: Basophils % (Auto) 1 % (0-2.5); Eosinophils # (Auto) 0.2 Thou/mm3 (0.0-0.5); Eosinophils % (Auto) 4 % (0-10); Hematocrit 30.6 % (36.0-46.0); Hemoglobin 10.2 g/dL (12.0-16.0); Immature Granulocytes % (Auto) 0 % (0-0); Immature Granulocytes Auto 0.02 Thou/mm3 (0.00-0.00); Lymphocytes # (Auto) 1.3 Thou/mm3 (1.0-4.8); Lymphocytes % (Auto) 20 % (10-50); Mean Corpuscular HGB Conc 33.3 g/dl (31.0-37.0); Mean Corpuscular Hemoglobin 28.7 pg (25.0-35.0); Mean Corpuscular Volume 86 fL (80-100); Monocytes # (Auto) 0.5 Thou/mm3 (0.0-0.8); Monocytes % (Auto) 8 % (0-12); Neutrophils # (Auto) 4.3 Thou/mm3 (1.8-7.7); Neutrophils % (Auto) 68 % (37-80); Nucleated Red Blood Cell % 0 /100 WBC (0); Platelet Count 261 Thou/mm3 (140-440); RDW Standard Deviation 54.5 fL (36.4-46.3); Red Blood Count 3.56 Miln/mm3 (4.00-5.20); White Blood Count 6.4 Thou/mm3 (3.6-11.0)
[2025-03-16 06:54] LABS: Alanine Aminotransferase 11 U/L (10-49); Alkaline Phosphatase 72 U/L (46-116); Anion Gap 6 (7-16); Aspartate Amino Transferase 16 U/L (0-34); BUN/Creatinine Ratio 14 Ratio (12-20); Bilirubin,Total 0.5 mg/dL (0.3-1.2); Blood Urea Nitrogen 10 mg/dL (9-23); Calcium 8.9 mg/dL (8.3-10.6); Calcium (Corrected) 8.9 mg/dL (8.5-10.1); Carbon Dioxide 28.9 mMol/L (20.0-31.0); Chloride 101 mMol/L (98-107); Creatinine (Component) 0.7 mg/dL (0.6-1.3); Estimated Creatinine Clearance 49.2 mL/min (>60); Glucose 151 mg/dL (74-106); Magnesium 1.9 mg/dL (1.6-2.6); Osmolality,Calculated 273 (275-295); Phosphorous 4.2 mg/dL (2.4-5.1); Potassium 3.8 mMol/L (3.4-5.1); Sodium 136 mMol/L (136-145); eGFR > 60 See Note
[2025-03-16] MEDS: INSULIN LISPRO (AdmeLOG) 1 UNIT/0.01 ML UNIT SC ×2 (07:34→12:09)
[2025-03-16 07:42] VITALS: BP 117/62; PULSE 72; RESP 18; TEMP 36.1; O2SAT 98
[2025-03-16 08:00] VITALS: PULSE 71
[2025-03-16] MEDS: PANTOPRAZOLE INJ 40 MG VIAL IVP (08:04)
--- NOTE | 2025-03-16 09:04 | PC.SS ---
Follow up note: Possible d/c home if Colonoscopy was ok. Pt will return home.
[2025-03-16] MEDS: lorataDINE 10 MG TABLET PO (10:30)
[2025-03-16] MEDS: FLUTICASONE NAS SPRAY 0.05% 16 GM BTL 1 SPRAY NASAL (10:31)
[2025-03-16 12:00] VITALS: BP 130/74; PULSE 84; PULSE 85; RESP 17; TEMP 36.4; O2SAT 96
--- NOTE | 2025-03-16 13:14 | PD.RESDS ---
Planned Discharge Date 03/16/25 DS: Providers Provider Date of admission: 03/14/25 08:37 Primary care physician: Aime Wayne PA-C Admitting Provider: Negar Dunn MD Attending Provider on Admission: Negar Dunn MD Consults: 03/14/25 06:01 Consult to Gastroenterology Stat Comment: LGI bleeding Consulting Provider: Bala Bhandari Attending Provider on DC: Negar Dunn MD Discharging Provider: Kanu Perez MD DS: Diagnosis Problem List Completed Was Problem List Reviewed/Reconciled?: Yes Hospital Course Hospital Course Hospital course: 79-year-old female with past medical history significant for uwg-[id number]-[id number] diabetes mellitus type 2 presented with a chief complaint of abdominal pain and ID bleed for the past 3 days. Patient will be admitted for workup and management of ID bleed. For her lower GI bleed patient underwent EGD and colonoscopy. Colonoscopy completed on 03/15/2025 findings include: Hemorrhoids on perianal exam. A few small mounted diverticula in sigmoid colon. Rectal bleeding was likely due to internal hemorrhoids not big enough for band ligation. EGD completed on 03/15/2025 findings include: A few small nonbleeding erosions at gastroesophageal junction. Diffuse moderate inflammation in the entire examined stomach. Large ulcerated 2 cm polyp in the antrum. Following polypectomy, 3 endoclips placed to achieve hemostasis. Her rectal bleeding was most likely due to internal hemorrhoids not large enough for band ligation and patient was prescribed Preparation H. Also consult on high-fiber diet for diverticulosis All patient's labs are now returning to baseline. Patient still clinically stable ultimately discharged to home. Discharge diagnoses: 1. Lower GI bleed?resolved 2. Abdominal pain?resolved 3. Pgo-ndtfavh-tlxvdovqd diabetes mellitus type 2 4. Rheumatoid arthritis 5. Gastric polyp s/p polypectomy Discharge plan: - You have been started on Preparation H ointment. Apply twice a day as needed to your hemorrhoids. ? You have been started on Metamucil to help your bowel movements. ? You have been started on a medication hyoscyamine for abdominal cramping. Take 1 tablet every 4 hours as necessary. ? We have put a hold on your hydrocodone until you see your PCP. ? We have stopped your meloxicam, this can cause ulcers in your stomach. - Avoid taking Aleve, Excedrin and any other NSAID medication as this may cause bleeding. Also avoid aspirin ? Continue the rest of your medications as before. ? Please follow-up with your primary care doctor for the results of the biopsies taken from your endoscopy and colonoscopy. ? Follow a diet of at least 50% green leafy vegetables and increase your water intake to prevent constipation. - Follow up with your primary doctor to manage your Rheumatoid arthritis - Follow up with your primary care physician within 1 week of discharge. If you do not have a primary care physician, please follow up with the [facility] Residents clinic ([phone]) ? If you experience any new, worsening or persistent symptoms either call your primary doctor, or dial 911 or present to the emergency department. We are grateful to be able to participate in Ms. Waller's care. We wish her the best. Plan of care discussed with Attending Dr. Shaun Perez MD PGY 1 Disclaimer: This note was dictated by speech recognition. Minor errors in district supervisor may be present due to voice recognition software. Time Spent with Patient Time attestation: Total time spent providing and/or coordinating discharge services: Time spent: Greater than 30 minutes (39) Exam Vital Signs Temp Pulse Resp BP Pulse Ox O2 Del Method O2 Flow Rate 97.6 F 85 17 130/74 96 Room Air 1 03/16/25 12:00 03/16/25 12:00 03/16/25 12:03/16/25 12:03/16/25 12:03/16/25 12:00 03/15/25 18:57 Narrative Exam GEN: AOx3, able to speak full sentences HEENT: NC/AC, oral mucosa moist, neck supple CVS: RRR, S1-S2 present, no murmurs appreciated RESP: CTAB GI: soft,non distended, non tender, NBS MSK: able to move all 4 limbs, no lower extremity edema SKIN: warm and dry ELECTRICAL PARTS RECONDITIONER: CN II-XII and Sensation grossly intact. Discharge Plan Plan Patient Disposition: HOME (Self Care) Care Plan Goals: - You have been started on Preparation H ointment. Apply twice a day as needed to your hemorrhoids. ? You have been started on Metamucil to help your bowel movements. ? You have been started on a medication hyoscyamine for abdominal cramping. Take 1 tablet every 4 hours as necessary. ? We have put a hold on your hydrocodone until you see your PCP. ? We have stopped your meloxicam, this can cause ulcers in your stomach. - Avoid taking Aleve, Excedrin and any other NSAID medication as this may cause bleeding. Also avoid aspirin ? Continue the rest of your medications as before. ? Please follow-up with your primary care doctor for the results of the biopsies taken from your endoscopy and colonoscopy. ? Follow a diet of at least 50% green leafy vegetables and increase your water intake to prevent constipation. - Follow up with your primary doctor to manage your Rheumatoid arthritis - Follow up with your primary care physician within 1 week of discharge. If you do not have a primary care physician, please follow up with the [facility] Residents clinic ([phone]) ? If you experience any new, worsening or persistent symptoms either call your primary doctor, or dial 911 or present to the emergency department. Brownlee comenzado a adonis el jennifer?ento Preparation H. Apl?quelo dos veces al d?a, seg?n sea necesario, sobre las hemorroides. ? Brownlee comenzado a adonis Metamucil para facilitar la evacuaci?n intestinal. ? Hemos suspendido haro hidrocodona hasta que consulte a haro m?dico de cabecera. ? Hemos suspendido haro meloxicam, ya que puede causarle ?lceras estomacales. - Evite adonis Aleve, Excedrin y cualquier otro DENIZ, ya que puede causar sangrado. Tambi?n evite la aspirina. ? Contin?e con el lillie de cristy medicamentos brenna antes. ? Por favor, consulte con haro m?dico de cabecera para obtener los resultados de las biopsias de haro endoscopia y colonoscopia. ? Siga vangie dieta compuesta al menos por un 50 % de verduras de hoja melanie y aumente haro consumo de agua para prevenir el estre?imiento. - Consulte con haro m?dico de cabecera para controlar haro artritis reumatoide. - Consulte con haro m?dico de cabecera dentro de la semana posterior al clarence. Si no tiene un m?dico de cabecera, comun?quese con la cl?james para residentes de [facility] ([phone]). ? Si experimenta s?ntomas nuevos, que empeoran o persisten, llame a haro m?dico de cabecera, shahab el 911 o acuda al servicio de urgencias. Prescriptions/Referrals Prescriptions/Med Rec: New Hemorrhoidal(PE-min oil-bashir) 0.25-14-74.9 % Ointment 1 applic ID BID PRN (Reason: Hemorrhoids) Qty: 56 0RF Metamucil 3.4 gram/5.4 gram powder 1 tbsp PO QDAY Qty: 660 0RF Rx Instructions: mix into at least 8 oz of water or juice before administering hyoscyamine sulfate 0.125 mg tablet 0.25 mg PO QID PRN (Reason: Abdominal cramping) 7 Days Qty: 56 0RF Continued ondansetron 4 mg tablet,disintegrating 4 mg PO Q8H PRN (Reason: nausea and vomiting) Qty: 14 0RF gabapentin 300 mg capsule 300 mg PO Q12H omeprazole 20 mg capsule,delayed release(DR/EC) 20 mg PO QDAY Janumet 50-1,000 mg tablet 1 tab PO BID paroxetine HCl 10 mg tablet 10 mg PO QDAY cetirizine [Aller-Aydee] 10 mg tablet 10 mg PO QDAY Held hydrocodone-acetaminophen 5-325 mg tablet 1 tab PO Q6H MDD 3 PRN (Reason: Cough) Qty: 7 0RF Hold Instructions: Until you see your PCP Discontinued meloxicam 7.5 mg tablet 7.5 mg PO QDAY Qty: 7 0RF Referrals: Aime Wayne PA-C [Primary Care Provider] - Patient/Caregiver Discharge Instructions Education Materials: Diagnosing Hemorrhoids, ED Hemorrhoids, ED Diverticulosis Print Language: Bulgarian Stand Alone Forms: Yolanda Award Info., Patient Portal Info Letter Discharge Order Discharge Orders: Discharge (Routine); Ordered 03/16/25 Ordered By: Negar Dunn Quality Discharge Quality Measures VTE prophylaxis Attestestation MD Attestation I attest that I was physically present for the evaluation, physical examination, lab and imaging review of the patient with the residents. I discussed the case with the residents and agree with the findings and plans of care as documented above. Negar Dunn MD
[2025-03-16] MEDS: POLYETHYLENE GLYCOL 17 GM PACKET PO (13:39)
[2025-03-16] MEDS: HYOSCYAMINE SULF 0.125 MG TAB.SUBL 0.25 MG PO (13:39)
[2025-03-16] MEDS: PREPARATION H OINT 30 GM TUBE PR (13:39)
--- NOTE | 2025-03-16 13:41 | PD.IMPROG ---
Documentation for date of: 03/16/25 Exam Vital Signs Temp Pulse Resp BP Pulse Ox O2 Del Method O2 Flow Rate 97.6 F 85 17 130/74 96 Room Air 1 03/16/25 12:00 03/16/25 12:00 03/16/25 12:00 03/16/25 12:00 03/16/25 12:00 03/16/25 12:00 03/15/25 18:57 Objective Labs 03/16/25 04:52 03/16/25 04:52 Labs: Laboratory Results - last 24 hr 03/16/25 04:52 WBC 6.4 RBC 3.56 L Hgb 10.2 L Hct 30.6 L MCV 86 MCH 28.7 MCHC 33.3 RDW Std Deviation 54.5 H Plt Count 261 Neut % (Auto) 68 Lymph % (Auto) 20 [place] % (Auto) 8 Eos % (Auto) 4 Baso % (Auto) 1 Neut # (Auto) 4.3 Lymph # (Auto) 1.3 [place] # (Auto) 0.5 Eos # (Auto) 0.2 Baso # (Auto) 0.0 Immature Gran # (Auto) 0.02 H Absolute Nucleated RBC 0.00 Immature Gran % 0 Nucleated RBC % 0 Sodium 136 Potassium 3.8 Chloride 101 Carbon Dioxide 28.9 Anion Gap 6 L BUN 10 Creatinine 0.7 Estim Creat Clear Calc 49.2 L eGFR > 60 BUN/Creatinine Ratio 14 Glucose 151 H Calculated Osmolality 273 L Calcium 8.9 Corrected Calcium 8.9 Phosphorus 4.2 Magnesium 1.9 Total Bilirubin 0.5 AST 16 ALT 11 Alkaline Phosphatase 72 Total Protein 6.0 Albumin 4.0 Globulin 2.0 L Albumin/Globulin Ratio 2.0 Assessment & Plan A&P Narrative Hematochezia etiology uncertain Plan Clear liquid diet GoLytely prep Consent obtained for fiberoptic colonoscopy as well as fiberoptic upper endoscopy because of the CT scan abnormality scheduled for tomorrow or once the patient is clear Other medical problems include Essential hypertension Time Spent With Patient Time: Total time spent is greater than 50% in coordination of care (as documented) at patient's floor/unit and/or counseling patient:
--- NOTE | 2025-03-16 14:21 | PC.NURSE ---
Performed Oxygen test on patient. Patient Satting 99 on 1 liter O2 NC. Placed Patient on RA. O2 Saturation 96 RA. Kept patient on room air for 30 minutes. O2 saturation stayed above 94 at all times. Had patient walk around the room. O2 saturation remained above 95 during walk.
[2025-03-16 15:05] VITALS: BP 126/74; PULSE 81; RESP 18; TEMP 36.1; O2SAT 96
[2025-03-23 07:31] LABS: ANCA Screen NEGATIVE (NEGATIVE); Myeloperoxidase Ab <1.0 AI (<1.0); Proteinase-3 Ab <1.0 AI (<1.0)
== END 2025-03-16 15:39 | disposition home or self-care (01) ==
LOC: SERX 22:50 → SERHOLD 03-14 08:57 → S3NX 03-15 10:50 → SERHOLD 03-17 06:58 → S3NX 03-17 06:59
PROVIDERS: Nurse Practitioner Family; Specialist; Admitting Provider Student in an Organized Health Care Education/Training Program; Emergency Provider Emergency Medicine; PCP Physician Assistant; Visit Provider Student in an Organized Health Care Education/Training Program
PROC: (CPT 43239; principal; 2025-03-15 11:30)
PROC: 0DJD8ZZ Inspection of Lower Intestinal Tract, Via Natural or Artificial Opening Endoscopic (ICD-10-PCS; CPT 45378; 2025-03-15 11:30)
DX: K64.8 Other hemorrhoids (principal); K57.31 Diverticulosis of large intestine without perforation or abscess with bleeding; K22.11 Ulcer of esophagus with bleeding; K29.71 Gastritis, unspecified, with bleeding; E11.9 Type 2 diabetes mellitus without complications; E78.00 Pure hypercholesterolemia, unspecified; I10 Essential (primary) hypertension; K31.7 Polyp of stomach and duodenum; M06.9 Rheumatoid arthritis, unspecified; M19.90 Unspecified osteoarthritis, unspecified site; Z79.4 Long term (current) use of insulin; Z83.3 Family history of diabetes mellitus; Z87.19 Personal history of other diseases of the digestive system; Z90.89 Acquired absence of other organs; Z96.653 Presence of artificial knee joint, bilateral; K29.51 Unspecified chronic gastritis with bleeding
CPT/HCPCS: 45378; 43239; 36415; 74177; 80053; 80061; 81001; 83690; 83735; 83993; 84100; 84443; 85014; 85018; 85025; 85610; 85730; 86021; 86036; 86850; 86900; 86901; 87015; 87045; 87046; 87081; 87205; 87329; 87338; 87449; 87899; 93225; 96372; 96374; 99285; A4649; G0378; J1200; J1610; J1815; J2250; J2470; J3010; J3475; Q9967; A9270

== ENCOUNTER 2025-06-13 10:34 | Emergency (ER) | payer OTHER, MEDICAID, SELFPAY ==
[2025-06-13 10:44] VITALS: BP 153/70; PULSE 97; RESP 19; TEMP 36.6; O2SAT 97; BMI 26.4
--- NOTE | 2025-06-13 10:49 | XR_ITS ---
Examination: CT brain head without contrast. 2-D sagittal coronal reconstructions Date and time of exam:June 13, 2025, 1124 hours Comparison February 15, 2025 INDICATIONS: Ground-level fall this morning with laceration to the head CTDI: vol (mGy):44.4 DLP: (mGycm):860. Technique: Multiple CT axial sections of the brain have been obtained, 5 mm slice thickness. Contrast has not been administered. 2-D sagittal, coronal reconstructions have been obtained Low dose protocols were performed. One or more of the following dose reduction techniques were used; automated exposure control, adjustment of the mA and/or KV according to patient size, use of iterative reconstruction technique. Findings: No significant ventricular enlargement. Intra-axial or extra-axial hemorrhage density is not seen. No mass effect or midline shift Basal cisterns are not remarkable. Fourth ventricle is midline. Cranial vault intact. Soft tissue left parietal scalp swelling Impression: Negative for acute hemorrhage, mass effect or midline shift
--- NOTE | 2025-06-13 12:12 | PD.EDHEAD ---
ED Head Injury RME/HPI General Chief complaint: Head Injury Stated complaint: HEAD INJURY FALLING BACK OFF STAIRS Time Seen by Provider: 06/13/25 10:49 Arrival date/time: 06/13/25 10:34 80-year-old female presents to the Emergency Department today with daughter for patient she had a slip and fall hitting the back of her head patient reports no neck pain no chest pain no shortness of breath no dizziness or weakness patient reports fall was mechanical Limitations: no limitations Related Data Home Medications ?Medication ?Instructions ?Recorded ?Confirmed cetirizine 10 mg tablet (Aller-Aydee) 10 mg PO QDAY 03/14/25 03/14/25 gabapentin 300 mg capsule 300 mg PO Q12H 03/14/25 03/14/25 omeprazole 20 mg capsule,delayed 20 mg PO QDAY 03/14/25 03/14/25 release paroxetine HCl 10 mg tablet 10 mg PO QDAY 03/14/25 03/14/25 sitagliptin phosphate 50 1 tab PO BID 03/14/25 03/14/25 mg-metformin 1,000 mg tablet (Janumet) Previous Rx's ?Medication ?Instructions ?Recorded hydrocodone 5 mg-acetaminophen 325 1 tab PO Q6H PRN Cough #7 tabs 11/23/22 mg tablet Held on 03/16/25. Instructions: Until you see your PCP ondansetron 4 mg disintegrating 4 mg PO Q8H PRN nausea and 02/15/25 tablet vomiting #14 tabs phenylephrine 0.25 %-mineral oil 1 applic [place] BID PRN Hemorrhoids 03/16/25 14 %-petrolatm 74.9 % rectal #56 grams ointment (Hemorrhoidal(phenyleph-min oil-petrolat)) psyllium husk 3.4 gram/5.4 gram 1 tbsp PO QDAY #660 grams 03/16/25 oral powder (Metamucil) acetaminophen 500 mg capsule 1,000 mg (2 x 500 mg) PO Q8HR PRN 06/13/25 pain #30 caps Allergies Allergy/AdvReac Type Severity Reaction Status Date / Time No Known Allergies Allergy Verified 06/13/25 10:38 Review of Systems Review of Systems Systems Reviewed: All systems reviewed, normal except as documented Constitutional Constitutional: Reports system reviewed and no additional complaints, except as documented, Denies fever(s) and Reports headache(s) Eyes Eyes: Reports system reviewed and no additional complaints, except as documented and Denies blurry vision ENT Ears, Nose, Mouth, and Throat: Reports system reviewed and no additional complaints, except as documented, Reports headache(s), Denies nasal congestion and Denies nasal discharge Cardiovascular Cardiovascular: Reports system reviewed and no additional complaints, except as documented, Denies chest pain and Denies dyspnea Respiratory Respiratory: Reports system reviewed and no additional complaints, except as documented, Denies chest congestion, Denies cough and Denies dyspnea Gastrointestinal Gastrointestinal: Reports system reviewed and no additional complaints, except as documented and Denies abdominal pain Integumentary/Breasts Skin/Breast: Reports system reviewed and no additional complaints, except as documented, Denies rash and Reports wounds (Abrasion scalp) Neurologic Neurologic: Reports system reviewed and no additional complaints, except as documented, Reports as per HPI and Reports headache(s) Past Medical History Past Medical History NEUROLOGIC: Negative Seizures CARDIAC: Positive Hypercholesterolemia and Hypertension; Negative Cardiac Disorders or Congestive Heart Failure RESPIRATORY: Positive Asthma; Negative Chronic Obstructive Pulmonary Disease (COPD) GASTROINTESTINAL: Positive Gastroesophageal Reflux Disease GENITOURINARY: Negative Renal Disease MUSCULOSKELETAL: Positive Arthritis ENDOCRINE: Positive Diabetes Mellitus Type 2; Negative Diabetes Mellitus Type 1 HEMATOLOGIC: Negative Sickle Cell Disease PSYCHO/SOCIAL: Positive Depression Surgical History SURGICAL: Positive Eye Surgery Social History SMOKING STATUS: Never smoker SUBSTANCE USE: does not use ED Exam General Limitations: Present no limitations General appearance: Present alert and in no apparent distress Expanded Head Exam Head image:  1. Superficial scalp laceration Eye Eye exam: Present normal appearance, PERRL and EOMI ENT ENT exam: Present normal exam, normal oropharynx and mucous membranes moist Neck Neck exam: Present normal inspection, full ROM and trachea midline Chest Chest inspection: Present normal inspection and symmetric chest wall rise Respiratory Respiratory exam: Present normal lung sounds bilaterally Cardiovascular Cardiovascular exam: Present regular rate, normal rhythm and normal heart sounds Abdominal Exam Abdominal exam: Present soft and normal bowel sounds Extremities Exam Extremities exam: Present normal inspection and full ROM Back Exam Back exam: Present normal inspection and full ROM Neurological Exam Neurological exam: Present alert, oriented X3, CN II-XII intact, normal gait and reflexes normal; Absent motor sensory deficit Psychiatric Psychiatric exam: Present normal affect and normal mood Skin Skin exam: Present warm, dry, intact and normal color Course Quality Measures none Orders Category Date Time Status CT head/brain wo con Stat Exams 06/13/25 10:49 Completed Vital Signs Vital signs: Vital Signs Temperature 97.9 F 06/13/25 10:44 Pulse Rate 97 06/13/25 10:44 Respiratory Rate 19 06/13/25 10:44 Blood Pressure 153/70 H 06/13/25 10:44 Pulse Oximetry (%) 97 06/13/25 10:44 Oxygen Delivery Method Room Air 06/13/25 10:44 O2 saturation 97% room air with normal limits Head Injury MDM Narrative MDM Narrative:: 80-year-old female presents to the Emergency Department today with daughter for patient she had a slip and fall hitting the back of her head patient reports no neck pain no chest pain no shortness of breath no dizziness or weakness patient reports fall was mechanical On exam patient is superficial abrasion of the scalp no acute bleeding at this time CT scan of the head obtained no acute abnormality noted tetanus up-to-date Patient discharged home in no distress to follow-up with primary care doctor in the next 24 to 48 hours and for any worsening symptoms to return to the ER immediately Patient data External records reviewed:: [facility] previous records Clinical information provided by:: patient Social determinants that could affect healthcare access:: none Patient has the following chronic illnesses:: None How is presenting disease/condition affected by chronic disease/condition?: no chronic disease Evaluation data The following diagnostics were reviewed and interpreted by me:: radiology exam(s) Lab and/or radiology exams considered but not ordered:: Radiology obtain Interpretation Summary: Reviewed by me Medications / Prescriptions Medications or Prescriptions considered but not ordered:: No meds Medication administrations:: No meds Consultations Consultation(s) initiated? (list below): No Diagnosis Differential diagnosis head injury: concussion without loss of consciousness, epidural hematoma, subdural hematoma and concussion with loss of consciousness Most likely diagnosis given after review of the tests above:: Closed head injury Admission Indicated Admission indicated?: not indicated Admission Request Was there a request for admission?: No Disposition Plan Disposition Plan: Discharge Discharge Attestation Discharge Attestation: The patient and all family members were given an opportunity to ask questions and understood the discharge instructions. Discharge instructions specifically effects, indications for sooner follow up or return to the emergency department, and the expected course of current diagnosis. Patient condition: Stable Discharge Plan Plan Patient Disposition: HOME (Self Care) Discharge Disposition comment: Stable Prescriptions/Referrals Prescriptions/Med Rec: New acetaminophen 500 mg capsule 1,000 mg PO Q8HR PRN (Reason: pain) Qty: 30 0RF No Action hydrocodone-acetaminophen 5-325 mg tablet 1 tab PO Q6H MDD 3 PRN (Reason: Cough) Qty: 7 0RF ondansetron 4 mg tablet,disintegrating 4 mg PO Q8H PRN (Reason: nausea and vomiting) Qty: 14 0RF gabapentin 300 mg capsule 300 mg PO Q12H omeprazole 20 mg capsule,delayed release(DR/EC) 20 mg PO QDAY Janumet 50-1,000 mg tablet 1 tab PO BID paroxetine HCl 10 mg tablet 10 mg PO QDAY cetirizine [Aller-Aydee] 10 mg tablet 10 mg PO QDAY Hemorrhoidal(PE-min oil-bashir) 0.25-14-74.9 % Ointment 1 applic UT BID PRN (Reason: Hemorrhoids) Qty: 56 0RF Metamucil 3.4 gram/5.4 gram powder 1 tbsp PO QDAY Qty: 660 0RF Rx Instructions: mix into at least 8 oz of water or juice before administering Referrals: Aime Wayne PA-C [Primary Care Provider] - In 1 week Problem List Clinical Impression: Closed head injury, Hematoma of scalp Patient/Caregiver Discharge Instructions Education Materials: ED Head Injury (Adult) Additional Instructions: Please follow up with your primary care doctor in the next 24-48hrs for any worsening symptoms return here immediately Print Language: Kittitian Stand Alone Forms: Yolanda Award Info., Patient Portal Info Letter PA/BEREAVEMENT PROGRAM COORDINATOR Supervising Physician PA/BEREAVEMENT PROGRAM COORDINATOR Supervising Physician: Dr de
== END 2025-06-13 12:21 | disposition home or self-care (01) ==
PROVIDERS: Emergency Provider Nurse Practitioner Primary Care; PCP Physician Assistant
DX: S00.03XA Contusion of scalp, initial encounter (principal); W01.0XXA Fall on same level from slipping, tripping and stumbling without subsequent striking against object, initial encounter
CPT/HCPCS: 70450; 99283

== ENCOUNTER → 2025-09-01 | Outpatient (CLI) | payer OTHER, MEDICAID, SELFPAY ==
--- NOTE | 2025-09-01 17:02 | XR_ITS ---
Examination: Lumbar spine, 5 views Technique: Lumbar spine AP, lateral, coned lateral lower lumbar spine, bilateral obliques 5 views Exam date and time: September 01, 2025, 1712 hours INDICATIONS: Lower back pain several years. FINDINGS: Thoracolumbar levoscoliosis 27 degrees Severe osteopenia Moderate bilateral hip osteoarthritis Advanced diffuse facet arthropathy Advanced lumbar spondylosis Chronic osteoporotic compressions L4, L3, L2 Grade 1 anterolisthesis L4 on L5 Diffuse advanced lumbar degenerative disc disease IMPRESSION: Diffuse advanced lumbar degenerative disc disease with significant spinal stenosis
== END | disposition home or self-care (01) ==
PROVIDERS: PCP Physician Assistant; Referring Provider Physical Medicine & Rehabilitation Pain Medicine; Visit Provider Physical Medicine & Rehabilitation Pain Medicine
DX: M51.360 Other intervertebral disc degeneration, lumbar region with discogenic back pain only (principal); M48.061 Spinal stenosis, lumbar region without neurogenic claudication
CPT/HCPCS: 72110